=== PATIENT | male | born 1960 | race Caucasian/White ===

== ENCOUNTER 2023-07-24 17:38 | Inpatient (IN) | payer OTHER, SELFPAY ==
--- NOTE | ~2023-07-24 | US_ITS ---
EXAMINATION: US RETROPERITONEAL LIMITED (RENAL ONLY) CLINICAL INFORMATION: New onset renal failure. COMPARISON: Renal ultrasound 03/20/2023. TECHNIQUE: Real-time imaging of the kidneys. FINDINGS: RIGHT KIDNEY: 10.4 x 5.7 x 5.5 cm (SAG x AP x TRV). The kidney is normal in size, contour, and echogenicity. Renal cortical thickness is normal. No renal calculi or hydronephrosis. Simple appearing cysts largest in the lower pole measuring up to 6.4 cm, for which no imaging follow-up is recommended. LEFT KIDNEY: 10.4 x 6.8 x 5.5 cm (SAG x AP x TRV). The kidney is normal in size, contour, and echogenicity. Renal cortical thickness is normal. No renal calculi or hydronephrosis. Simple appearing cyst in the lower pole measuring 1.1 cm, for which no imaging follow-up is recommended. US/US renal BI IMPRESSION: No acute sonographic abnormalities.
--- NOTE | ~2023-07-24 | CT_ITS ---
EXAMINATION: CT HEAD WITHOUT CONTRAST CLINICAL INFORMATION: Dizziness, headache and intermittent left-sided numbness COMPARISON: None available. TECHNIQUE: Contiguous axial imaging was performed from the skull base to vertex without intravenous administration of contrast. This CT examination was performed using dose optimization techniques as appropriate, variously including the following: *Automated exposure control *Adjustment of mA and/or kV according to patient size (this includes techniques or standardized protocols for targeted exams where dose is matched to indication/reason for exam; i.e. extremities or head) *Use of iterative reconstruction technique DLP: 712 mGy-cm FINDINGS: There is no evidence for an extra-axial collection. There is no evidence for intra-or extra-axial hemorrhage. The ventricles and extra-axial CSF spaces are appropriate. Sidhu-white matter differentiation is normal. No mass, mass effect or infarct is seen. Review of bone windows is normal. No skull fracture. Visualized paranasal sinuses, mastoid air cells and middle ears are clear. CT/CT head/brain wo IV con IMPRESSION: No acute intracranial pathology.
[2023-07-24 18:42] VITALS: BP 112/73; PULSE 112; RESP 20; TEMP 36.9; O2SAT 98; BMI 28.7
--- NOTE | 2023-07-24 18:43 | ED.GENADULT ---
HPI - General Adult General Chief complaint: Dizziness Stated complaint: Flu like symptoms Time Seen by Provider: 07/24/23 21:02 Source: patient and family Mode of arrival: ambulatory Limitations: no limitations History of Present Illness HPI narrative: 63 yo male with PMH of HTN on lisinopril, gout on allopurinol, BPH, DM on glipizide notes since yesterday he has had loose nonbloody stools, feels very weak and tired like he will pass out. He has not urinated much. He feels dizzy when he tries to walk. He noted that his left leg yesterday AM felt tingly which has happened before in the past he can feel it but it just feels tingly. He was so tired that he left work yesterday and had to lay down most of the day. He denies known hx of moderate CKD but was told he shouldn't take ibuprofen last Cr 1.67 from [facility] 2021 complaint: weakness, dizziness Onset (ago): day(s) (yesterday AM) Radiation: non-radiation Severity: moderate Relieving factors: rest Exacerbating factors: movement Associated symptoms: loss of appetite, malaise, weakness and other (decreased urine output) Treatments prior to arrival: none Related Data Home Medications Medication Instructions Recorded Confirmed lisinopril 20 mg tablet 20 mg PO DAILY 10/10/21 10/10/21 Previous Rx's Medication Instructions Recorded prednisone 10 mg tablet 30 mg (3 x 10 mg) PO DAILY #15 tabs 10/10/21 tramadol 50 mg tablet 50 mg PO TID PRN pain #20 tabs 10/10/21 Allergies Allergy/AdvReac Type Severity Reaction Status Date / Time No Known Allergies Allergy Verified 07/24/23 18:47 Review of Systems Review of Systems: Constitutional : No Fever, No Chills, No Fatigue ENT/Mouth : No sore throat, No Rhinorrhea Eyes: No Eye Pain, No Swelling, No Redness Cardiovascular : No Chest Pain, No SOB, No Dyspnea on Exertion Respiratory : No Cough, No Sputum Gastrointestinal : No Nausea, No Vomiting, No Diarrhea, No abdominal Pain Genitourinary : No Dysuria, No Urinary Frequency, No Hematuria, Musculoskeletal : No joint pain, No Myalgias, No Joint Swelling Skin : No Skin Lesions, No rash Neuro : pos Weakness, pos Numbness, pos Dizziness, no Headache Psych : No Anxiety/Panic, No Depression All other systems reviewed and are negative [facility] Past Medical History Source: old records reviewed Medical History (Updated 07/24/23 @ 23:09 by ROSE Rodriguez) Nephrolithiasis Chronic kidney disease (CKD), stage III (moderate) Gout Diabetes HTN (hypertension) Social History Social History (Updated 07/24/23 @ 22:07 by Tierra Worthy DO) Household Members: Significant Other Housing: House Do you presently have visiting nurse or other home services: No Patient Tobacco Use Status: Never used Tobacco Physical Exam ED Vital Signs: Vital Signs - 24 hr 07/24/23 18:42 07/24/23 21:17 07/24/23 21:17 Temperature 98.5 F Pulse Rate 112 H 91 94 Pulse Rate [Monitor] Respiratory Rate 20 Blood Pressure 112/73 128/81 122/80 Pulse Oximetry 98 Oxygen Delivery Method Room Air 07/24/23 21:17 07/24/23 21:18 07/24/23 22:28 Temperature 98.3 F Pulse Rate 108 H 108 H Pulse Rate [Monitor] 90 Respiratory Rate 17 Blood Pressure 110/70 110/70 Pulse Oximetry 96 Oxygen Delivery Method Room Air BMI result Body Mass Index 28.7 Appearance: Alert. Oriented X3. No acute distress. Eyes: Pupils equal, round and reactive to light. ENT: Pharynx dry MM Neck: Normal inspection. Neck supple. CVS: Normal heart rate and rhythm. Pulses normal. Respiratory: No respiratory distress. Breath sounds normal. Abdomen: Soft and non-tender. Skin: Skin warm and dry. Normal skin color. Normal skin turgor. Extremities: No lower extremity edema. No calf ttp Neuro: Oriented X 3. No motor deficit. No sensory deficit. Course Course Course Narrative: This is an RME: Additional HPI, ROS, PE not included below will be deferred to primary provider. Patient is a 63 year old male presenting for evaluation. Reports yesterday morning 10:00 [address] felt very dizzy like he was going to pass out, developed pain in the left arm. Went home and laid on the floor for hours, got up and dizziness persisted. Unsteady on his feet, took a shower and it felt the same. Awoke today feeling persistent dizziness, fatigue all day. Has nausea without vomiting and diarrhea. Posterior headache and posterior neck pain. intermittent L anterior proximal thigh numbness. Denies fevers, chills, CP, shortness of breath, ABD pain. Plan: Labs, EKG, orthostatic vital signs Medications Administered Generic Name Dose Route Start Last Admin Trade Name Freq PRN Reason Stop Dose Admin Heparin Sodium (Porcine) 5,000 unit 07/24/23 23:00 07/25/23 00:02 Heparin Sodium,Porcine 5,000 Unit/Ml Vial SUBCUT 5,000 unit Q12H TAIWO Administration Sodium Chloride 1,000 mls @ 100 mls/hr 07/24/23 23:00 07/25/23 00:39 Ns IVCONT 100 mls/hr .Q10H TAIWO Administration Sodium Chloride 3 ml 07/25/23 00:00 07/25/23 00:44 0.9 % Sodium Chloride Flush 3 Ml Syringe IVFLUSH 3 ml QSHIFT TAIWO Administration Discontinued Medications Generic Name Dose Route Start Last Admin Trade Name Freq PRN Reason Stop Dose Admin Sodium Chloride 1,000 mls @ 999 mls/hr 07/24/23 21:15 07/24/23 23:26 Ns IV 07/24/23 22:15 Infused .Q1H1M TAIWO Infusion Sodium Chloride 1,000 mls @ 999 mls/hr 07/24/23 21:15 07/24/23 23:26 Ns IV 07/24/23 22:15 Infused .Q1H1M TAIWO Infusion Medical Decision Making Medical Decision Making [facility] Narrative: 63 yo male with PMH of DM, HTN, gout no changes in medications who presents with dizziness, difficulty walking, weakness all over, feeling some numbness in L leg since yesterady AM but intact on neuro exam at this time Cr 2.57 with last known last 2021 at [facility] will call for records. Labs, UA, renal US ordered. IVF x 2L. Likely admit given symptoms and suspected ISSA. Differential Diagnosis Differential Diagnoses: The differential diagnosis associated with the presentation includes dehydration, dizziness, orthostatics Admission/Observation Consideration of admission/observation: Escalation of care including admission/observation considered admit for ISSA Consult Healthcare Provider Management of the patient was discussed with: Hospitalist (will admit) Lab Data [facility] Lab Attestation statement: I reviewed the patient's lab results. 07/25/23 05:13 07/25/23 05:12 Labs: Lab Results 07/24/23 07/24/2324 Range/Units 18:51 19:20 19:26 WBC 10.2 (4.8-10.8) X10*3/uL RBC 6.53 H (4.60-5.80) X10*6/uL Hgb 17.5 (14.0-18.0) g/dl Hct 53.9 H (42.0-52.0) % MCV 82.5 (80.0-98.0) fL MCH 26.8 L (27.0-33.0) pg MCHC 32.5 (31.0-36.0) g/dl RDW 14.6 (11.0-16.0) % Plt Count 234 (160-400) X10*3/uL MPV 9.0 L (9.4-12.4) fL Immature Gran % (Auto) 0.4 (0.0-0.4) % Neut % (Auto) 80.4 H (45-73) % Lymph % (Auto) 9.8 L (20-40) % [place] % (Auto) 8.8 (2-11) % Eos % (Auto) 0.5 (0-4) % Baso % (Auto) 0.1 (0-2) % Lymph # (Auto) 1.0 L (1.2-4.9) X10*3/uL [place] # (Auto) 0.9 (0.1-1.2) X10*3/uL Eos # (Auto) 0.1 (0.0-0.4) X10*3/uL Baso # (Auto) 0.0 (0.0-0.2) X10*3/uL Abs Immat Gran (auto) 0.04 H (0.00-0.03) X10*3/uL Absolute Neuts (auto) 8.2 (2.0-8.3) x10*3/uL Absolute Nucleated RBC 0.000 (0.0-0.012) X10*3/uL Nucleated RBC % (auto) 0.0 (0.0-0.2) /100WBC PT 12.9 (11.1-13.3) SEC INR 1.1 (0.9-1.1) Sodium 137 (135-145) mmol/L Potassium 4.5 (3.3-5.1) mmol/L Chloride 106 (96-108) mmol/L Carbon Dioxide 21 L (22-29) mmol/L Anion Gap 15 (12-20) BUN 43 H (9-16) mg/dL Creatinine 2.57 H (0.5-1.4) mg/dL Estim Creat Clear Calc 33.7 Estimated GFR 25 POC Glucose 158 H (60-115) mg/dL Random Glucose 145 H (60-115) mg/dL Calcium 9.4 (8.4-10.2) mg/dL Magnesium 1.8 (1.6-2.6) mg/dL Total Bilirubin 0.6 (0.0-1.0) mg/dL AST 19 (5-37) U/L ALT 29 (0-40) U/L Alkaline Phosphatase 99 (39-117) U/L Total Creatine Kinase 51 (38-174) U/L Troponin I High Sens < 2.7 (<3.5-35.0) ng/L B-Natriuretic Peptide < 10 (<100) pg/mL Total Protein 8.1 H (6.5-8.0) g/dL Albumin 4.6 (3.5-5.0) g/dL Influenza Type A (PCR) NEGATIVE (Negative) Influenza Type B (PCR) NEGATIVE (Negative) RSV RNA Qual (PCR) NEGATIVE (Negative) SARS-CoV-2 RNA (RT-PCR) NEGATIVE (Negative) Independent Interpretation I performed an independent interpretation of an: EKG and Ultrasound (no obstruction) Interpretation: Rate: 96 Rhythm: NSR [place]: normal Normal P waves. Normal JEROME. Normal QRS complex. ST T wave : normal no DOROTHY qTC: 411 prior studies: no acute ischemia The study has been interpreted contemporaneously by me. . Radiology Impression Discussion of test interpretation with radiology: I have reviewed the radiologist's reading. Critical Care Time Critical Care Time Critical Care Time: Yes Total Critical Care Time: 40 Attestation: review of records, IVF x 2L, admission I attest to this time spent taking care of the patient Discharge Plan Discharge Clinical Impression: ISSA (acute kidney injury) Patient Disposition: Admitted As Inpatient Interventions: Admission Worksheet (ED) Last Done: 07/24/23 23:50 Discharge Date/Time: 07/25/23 00:15
--- NOTE | 2023-07-24 18:50 | ECG_ITS ---
Test Reason : DIZZNESS Blood Pressure : / mmHG Vent. Rate : 099 BPM Atrial Rate : 099 BPM P-R Int : 146 ms QRS Dur : 100 ms QT Int : 320 ms P-R-T Axes : 000 146 -24 degrees QTc Int : 410 ms Normal sinus rhythm Left posterior fascicular block Abnormal QRS-T angle, consider primary T wave abnormality Abnormal ECG No previous ECGs available Referred By: Pinky Vinson Electronically Signed By:JOANNE DIAZ MD
[2023-07-24 18:58] LABS: Glucose, Whole Blood 158 mg/dL (60-115)
[2023-07-24 19:31] LABS: MANUAL DIFF FLAG NO
[2023-07-24 19:33] LABS: Basophils Percent Auto 0.1 % (0-2); Eosinophils Absolute Auto 0.1 X10*3/uL (0.0-0.4); Eosinophils Percent Auto 0.5 % (0-4); Hematocrit 53.9 % (42.0-52.0); Hemoglobin 17.5 g/dl (14.0-18.0); Imm Gran Abs Auto 0.04 X10*3/uL (0.00-0.03); Imm Gran Pct Auto 0.4 % (0.0-0.4); Lymphocytes Percent Auto 9.8 % (20-40); Mean Corpuscular HGB Conc 32.5 g/dl (31.0-36.0); Mean Corpuscular Hemoglobin 26.8 pg (27.0-33.0); Mean Corpuscular Volume 82.5 fL (80.0-98.0); Monocytes Absolute Auto 0.9 X10*3/uL (0.1-1.2); Monocytes Percent Auto 8.8 % (2-11); Neutrophils Absolute Auto 8.2 x10*3/uL (2.0-8.3); Neutrophils Percent Auto 80.4 % (45-73); Platelet Count 234 X10*3/uL (160-400); Red Blood Count 6.53 X10*6/uL (4.60-5.80); Red Cell Distribution Width 14.6 % (11.0-16.0); White Blood Count 10.2 X10*3/uL (4.8-10.8)
[2023-07-24 19:44] LABS: INTERNATIONAL NORM RATIO 1.1 (0.9-1.1); Prothrombin Time 12.9 SEC (11.1-13.3)
[2023-07-24 19:50] LABS: Alanine Aminotransferase 29 U/L (0-40); Albumin Level 4.6 g/dL (3.5-5.0); Alkaline Phosphatase 99 U/L (39-117); Anion Gap 15 (12-20); Aspartate Amino Transferase 19 U/L (5-37); Bilirubin Total 0.6 mg/dL (0.0-1.0); Blood Urea Nitrogen 43 mg/dL (9-16); Calcium 9.4 mg/dL (8.4-10.2); Carbon Dioxide 21 mmol/L (22-29); Chloride 106 mmol/L (96-108); Creatinine Clr Calc Pharmacy 33.7; Estimated Glomerular Filt Rate 25; Glucose Random 145 mg/dL (60-115); Magnesium 1.8 mg/dL (1.6-2.6); Potassium 4.5 mmol/L (3.3-5.1); Sodium 137 mmol/L (135-145); Total Protein 8.1 g/dL (6.5-8.0)
[2023-07-24 19:53] LABS: B Type Natriuretic Peptide < 10 pg/mL (<100)
[2023-07-24 19:58] LABS: Troponin-I High Sensitivity < 2.7 ng/L (<3.5-35.0)
[2023-07-24 20:12] LABS: Influenza A PCR NEGATIVE (Negative); Influenza B PCR NEGATIVE (Negative); Resp Syncy Virus RNA Qual PCR NEGATIVE (Negative); SARS COV2 PCR INHOUSE NEGATIVE (Negative)
[2023-07-24 21:17] VITALS: BP 110/70; BP 122/80; BP 128/81; PULSE 108; PULSE 91; PULSE 94
[2023-07-24 21:18] VITALS: BP 110/70; PULSE 108; RESP 17; TEMP 36.8; O2SAT 96
--- NOTE | 2023-07-24 21:20 | PC.NURSE ---
2x attempt for iv without success. another RN retry at this time.
[2023-07-24] MEDS: 0.9 % Sodium Chloride 1,000 ML 999 ML IV ×2 (21:40)
[2023-07-24 22:28] VITALS: PULSE 90
--- NOTE | 2023-07-24 22:58 | P.HPHOSP_ITS ---
History of Present Illness Date of Service: 07/24/23 Attending physician on admission: Charissa Baum Chief Complaint: near syncope, diarrhea 63-year-old male with history of CKD stage 3, nephrolithiasis, uwq-ztfwblf-[id number] type 2 diabetes, hypertension presents to the ED earlier today with his girlfriend, Pat, for evaluation of near-syncope. The patient reports positional lightheadedness with decreased appetite and watery diarrhea ongoing since yesterday. He reports multiple episodes of nonbloody diarrhea that started yesterday with poor p.o. intake. He has been making urine. Denies eating any bad foods and no one at home has similar symptoms. No recent travel. No fevers, chills, abdominal pain, nausea, vomiting, shortness of breath, palpitations, syncope, chest pain. On arrival, patient intermittently tachycardic to 112 with heart rate 90 on admission. No hypotension, vitals otherwise stable. Orthostatic vital signs negative. There is no leukocytosis. Creatinine 2.57 (baseline around 1.4 per patient's MyChart Portal from [facility]), BUN 43. Electrolyte levels normal. Glucose 158 on admission. Hepatic function normal. Troponin below detectable limits. Negative for influenza, COVID-19, RSV. Renal ultrasound negative for any acute sonographic abnormalities. Head CT negative for any acute intracranial abnormalities. In the ED, given 2 L IV NS. Review of Systems 2 Review of Systems: General: No fevers, malaise, unintentional weight loss HEENT: No blurred vision, diplopia. No sore throat, nasal congestion, rhinorrhea, sinus pain, ear pain Cardiovascular: No chest pain, palpitations, or leg edema Respiratory: No shortness of breath, wheezing, cough GI: +diarrhea, +anorexia. No nausea, vomiting, constipation, melena, hematochezia : No dysuria, hematuria, increased urinary frequency, decreased urinary output MSK: No myalgia, back pain Neuro: No headaches, weakness, paresthesias. +lightheadedness Skin: No rashes or lesions [facility] Medical History (Updated 07/24/23 @ 23:09 by ROSE Rodriguez) Nephrolithiasis Chronic kidney disease (CKD), stage III (moderate) Gout Diabetes HTN (hypertension) Social History (Updated 07/24/23 @ 22:07 by Tierra Worthy DO) Patient Tobacco Use Status: Never used Tobacco Smoked in Last 30 Days: No Use of substances other than those prescribed or required for medical reasons: No Advance Directives: No Advance Directives Information Provided: No Meds Allergies Allergy/AdvReac Type Severity Reaction Status Date / Time No Known Allergies Allergy Verified 07/24/23 18:47 Home Medications Medication Instructions Recorded Confirmed Last Taken Type lisinopril 20 mg tablet 20 mg PO DAILY 10/10/21 10/10/21 Unknown History Physical Exam 2 Vital Signs and Narrative: Vital Signs: Last Vital Signs Temp 98.3 F 07/24/23 21:18 Pulse 90 07/24/23 22:28 Resp 17 07/24/23 21:18 BP 110/70 07/24/23 21:18 Pulse Ox 96 07/24/23 21:18 O2 Del Method Room Air 07/24/23 21:18 BMI result Body Mass Index 28.7 Results Labs 07/24/23 19:26 07/24/23 19:26 Labs: Laboratory Results - last 24 hr 07/24/23 07/24/23 07/24/23 18:51 19:20 19:26 MCV 82.5 MCH 26.8 L MCHC 32.5 RDW 14.6 Plt Count 234 MPV 9.0 L Immature Gran % (Auto) 0.4 Neut % (Auto) 80.4 H Lymph % (Auto) 9.8 L [place] % (Auto) 8.8 Eos % (Auto) 0.5 Baso % (Auto) 0.1 Lymph # (Auto) 1.0 L [place] # (Auto) 0.9 Eos # (Auto) 0.1 Baso # (Auto) 0.0 Abs Immat Gran (auto) 0.04 H Absolute Neuts (auto) 8.2 Absolute Nucleated RBC 0.000 Nucleated RBC % (auto) 0.0 PT 12.9 INR 1.1 Anion Gap 15 Estim Creat Clear Calc 33.7 Estimated GFR 25 POC Glucose 158 H Random Glucose 145 H Calcium 9.4 Magnesium 1.8 Total Bilirubin 0.6 AST 19 ALT 29 Alkaline Phosphatase 99 Total Creatine Kinase 51 Troponin I High Sens < 2.7 B-Natriuretic Peptide < 10 Total Protein 8.1 H Albumin 4.6 Influenza Type A (PCR) NEGATIVE Influenza Type B (PCR) NEGATIVE RSV RNA Qual (PCR) NEGATIVE SARS-CoV-2 RNA (RT-PCR) NEGATIVE Imaging Radiologist's Impressions: Impressions Head CT 07/24/23 19:36 IMPRESSION: No acute intracranial pathology. Renal Ultrasound 07/24/23 21:49 IMPRESSION: No acute sonographic abnormalities. Assessment and Plan (1) Diarrhea: Qualifiers: Diarrhea type: unspecified type Qualified Code(s): R19.7 - Diarrhea, unspecified Status: Acute (2) Near syncope: Status: Acute (3) ISSA (acute kidney injury): Status: Acute Plan 63-year-old male with history of CKD stage 3, nephrolithiasis, uns-ooyucue-lotbmqvyx type 2 diabetes, hypertension admitted for ISSA and near syncope due to acute diarrhea. #Acute kidney injury- likely prerenal 2/2 GI losses -Creat 2.57, baseline around 1.4 ([facility] patient portal), BUN 43 -baseline ckd stage 3 -Continue IVF -avoid nephrotoxins -monitor I&O -low sodium diet -follow renal function/lytes #Orthostatic near syncope -repeat orthostatic VS am, no hypotension -continue ivf #Acute diarrhea -cdiff pcr and gi panel pending #Non insulin dependent type 2 diabetes without hyperglycemia -poc glucose, diabetic diet -humalog on ss #Hypertension -bp reasonably controlled -hold lisinopril in setting of ISSA DVT prophylaxis- heparin full code pt requires inpt stay at least 2 midnights due to issa due to gi losses with near syncope requiring IVF resuscitation and close monitoring of renal function and electrolyte levels. Quality Stroke Does the patient have a stroke diagnosis?: No VTE Prior VTE?: No VTE Risk Level:: Medical - moderate - high VTE Device Contraindication: Treatment Not Indicated VTE Drug Contraindication: N/A - Med Ordered
[2023-07-24 23:49] LABS: Appearance Urine Clear; Color Urine Yellow; Glucose Urine UA Negative (Negative); Leukocyte Esterase Urine Negative (Negative); Nitrite Urine Negative (Negative); PH 5.5 (5.0-9.0); Specific Gravity - Urine 1.025 (1.005-1.025); UMIC TRIGGER UACC YES; Urine Blood Moderate (2+) (Negative); Urine Ketones Negative (Negative); Urine Protein 30 (1+) mg/dL (Neg-Trace)
[2023-07-24 23:55] VITALS: BP 146/84; PULSE 82; RESP 20; TEMP 36.6; O2SAT 96
[2023-07-24 23:59] LABS: Creatinine Urine 175.76 mg/dL
[2023-07-25] VITALS (9 sets, daily range): BP systolic 123–148; BP diastolic 71–85; PULSE 72–97; RESP 16–18; TEMP 36.3–36.8; O2SAT 95–98
[2023-07-25] MEDS: Heparin Sodium,Porcine 5,000 UNIT/ML VIAL 5000 UNIT SUBCUT ×3 (00:02→22:49)
[2023-07-25 00:12] LABS: Bacteria Urine None Seen (None Seen); Squamous Epithelial Cell Urine 0-2 /HPF (0-2); WBC Urine 0-5 /HPF (0-5)
[2023-07-25] MEDS: 0.9 % Sodium Chloride 1,000 ML 100 ML IVCONT ×3 (00:39→22:46)
[2023-07-25] MEDS: 0.9 % Sodium Chloride Flush 3 ML SYRINGE IVFLUSH (00:44)
[2023-07-25 05:23] LABS: MANUAL DIFF FLAG NO
[2023-07-25 05:28] LABS: Basophils Percent Auto 0.3 % (0-2); Eosinophils Absolute Auto 0.1 X10*3/uL (0.0-0.4); Eosinophils Percent Auto 1.1 % (0-4); Hematocrit 47.4 % (42.0-52.0); Hemoglobin 15.1 g/dl (14.0-18.0); Imm Gran Abs Auto 0.05 X10*3/uL (0.00-0.03); Imm Gran Pct Auto 0.5 % (0.0-0.4); Lymphocytes Absolute Auto 1.8 X10*3/uL (1.2-4.9); Lymphocytes Percent Auto 19.2 % (20-40); Mean Corpuscular HGB Conc 31.9 g/dl (31.0-36.0); Mean Corpuscular Hemoglobin 26.6 pg (27.0-33.0); Mean Corpuscular Volume 83.5 fL (80.0-98.0); Mean Platelet Volume 9.3 fL (9.4-12.4); Monocytes Absolute Auto 1.1 X10*3/uL (0.1-1.2); Neutrophils Absolute Auto 6.3 x10*3/uL (2.0-8.3); Neutrophils Percent Auto 66.9 % (45-73); Platelet Count 184 X10*3/uL (160-400); Red Blood Count 5.68 X10*6/uL (4.60-5.80); Red Cell Distribution Width 14.3 % (11.0-16.0); White Blood Count 9.4 X10*3/uL (4.8-10.8)
[2023-07-25 05:46] LABS: Anion Gap 10 (12-20); Blood Urea Nitrogen 34 mg/dL (9-16); Calcium 8.1 mg/dL (8.4-10.2); Carbon Dioxide 17 mmol/L (22-29); Chloride 114 mmol/L (96-108); Creatinine Clr Calc Pharmacy 45.6; Estimated Glomerular Filt Rate 36; Glucose Random 128 mg/dL (60-115); Potassium 3.9 mmol/L (3.3-5.1); Sodium 137 mmol/L (135-145)
[2023-07-25 07:43] LABS: Glucose, Whole Blood 140 mg/dL (60-115)
--- NOTE | 2023-07-25 08:41 | PHA.MEDREC ---
Pharmacy Consult ? Medication Reconciliation Pharmacy has completed the medication reconciliation. spoke with patient to confirm medications. He reports last taking his medications morning.
[2023-07-25 11:04] LABS: CDiff Gene PCR NEGATIVE (Negative)
--- NOTE | 2023-07-25 11:19 | HO.PM.IMPN ---
Subjective Subjective Date of Service: 07/25/23 Physical Exam Vital Signs: Vital Signs: Last Vital Signs Temp 97.5 F 07/25/23 07:22 Pulse 94 07/25/23 08:20 Resp 18 07/25/23 07:22 BP 125/74 07/25/23 08:20 Pulse Ox 95 07/25/23 07:22 O2 Del Method Room Air 07/25/23 07:22 BMI result Body Mass Index 28.7 Objective Data Active Medications Acetaminophen (Acetaminophen 325 Mg Tablet) 650 mg PO Q6H PRN PRN Reason: Pain, Mild (Pain Scale 1-3) Dextrose (Dextrose 50 % 25 Gm/50 Ml Syringe) 25 gm IVPUSH Q15M PRN; Protocol PRN Reason: per Hypoglycemia Standing Ord. Glucose (Glucose Gel 15 Gm Gel..Gram.) 15 gm PO Q15M PRN; Protocol PRN Reason: per Hypoglycemia Standing Ord. Heparin Sodium (Porcine) (Heparin Sodium,Porcine 5,000 Unit/Ml Vial) 5,000 unit SUBCUT Q12H [facility] Last Admin: 07/25/23 00:02 Dose: 5,000 unit Documented By: ROSIE Sodium Chloride (Ns) 1,000 mls @ 100 mls/hr IVCONT .Q10H [facility] Last Admin: 07/25/23 00:39 Dose: 100 mls/hr Documented By: CATHY Insulin Human Lispro (Insulin Lispro 100 Unit/Ml 3 Ml Vial) 0 unit SUBCUT QIDACHS [facility]; Protocol Last Admin: 07/25/23 07:46 Dose: Not Given Documented By: KEN Non-Admin Reason: No Insulin Coverage Ondansetron HCl (Ondansetron Hcl 4 Mg/2 Ml Vial) 4 mg IVPUSH Q8H PRN PRN Reason: Nausea and Vomiting Senna (Sennosides 8.6 Mg Tablet) 17.2 mg PO BEDTIME PRN PRN Reason: Constipation Sodium Chloride (0.9 % Sodium Chloride Flush 3 Ml Syringe) 3 ml IVFLUSH QSHIFT [facility] Last Admin: 07/25/23 07:33 Dose: Not Given Documented By: KEN Non-Admin Reason: IV Running Labs 07/25/23 05:13 07/25/23 05:12 Labs: Laboratory Results - last 24 hr 07/24/23 07/24/2307/23/24 18:51 19:20 19:26 MCV 82.5 MCH 26.8 L MCHC 32.5 RDW 14.6 Plt Count 234 MPV 9.0 L Immature Gran % (Auto) 0.4 Neut % (Auto) 80.4 H Lymph % (Auto) 9.8 L [place] % (Auto) 8.8 Eos % (Auto) 0.5 Baso % (Auto) 0.1 Lymph # (Auto) 1.0 L [place] # (Auto) 0.9 Eos # (Auto) 0.1 Baso # (Auto) 0.0 Abs Immat Gran (auto) 0.04 H Absolute Neuts (auto) 8.2 Absolute Nucleated RBC 0.000 Nucleated RBC % (auto) 0.0 PT 12.9 INR 1.1 Anion Gap 15 Estim Creat Clear Calc 33.7 Estimated GFR 25 POC Glucose 158 H Random Glucose 145 H Calcium 9.4 Magnesium 1.8 Total Bilirubin 0.6 AST 19 ALT 29 Alkaline Phosphatase 99 Total Creatine Kinase 51 Troponin I High Sens < 2.7 B-Natriuretic Peptide < 10 Total Protein 8.1 H Albumin 4.6 Urine Color Urine Appearance Urine pH Ur Specific [place] Urine Protein Urine Glucose (UA) Urine Ketones Urine Blood Urine Nitrite Ur Leukocyte Esterase Urine RBC Urine WBC Ur Squamous Epith Cells Urine Bacteria Hyaline Casts Ur Random Sodium Urine Creatinine C. difficile Tox B Gene Influenza Type A (PCR) NEGATIVE Influenza Type B (PCR) NEGATIVE RSV RNA Qual (PCR) NEGATIVE SARS-CoV-2 RNA (RT-PCR) NEGATIVE 07/24/23 07/25/23 07/25/23 23:45 05:12 05:13 MCV 83.5 MCH 26.6 L MCHC 31.9 RDW 14.3 Plt Count 184 MPV 9.3 L Immature Gran % (Auto) 0.5 H Neut % (Auto) 66.9 Lymph % (Auto) 19.2 L [place] % (Auto) 12.0 H Eos % (Auto) 1.1 Baso % (Auto) 0.3 Lymph # (Auto) 1.8 [place] # (Auto) 1.1 Eos # (Auto) 0.1 Baso # (Auto) 0.0 Abs Immat Gran (auto) 0.05 H Absolute Neuts (auto) 6.3 Absolute Nucleated RBC 0.000 Nucleated RBC % (auto) 0.0 PT INR Anion Gap 10 L Estim Creat Clear Calc 45.6 Estimated GFR 36 POC Glucose Random Glucose 128 H Calcium 8.1 L D Magnesium Total Bilirubin AST ALT Alkaline Phosphatase Total Creatine Kinase Troponin I High Sens B-Natriuretic Peptide Total Protein Albumin Urine Color Yellow Urine Appearance Clear Urine pH 5.5 Ur Specific [place] 1.025 Urine Protein 30 (1+) H Urine Glucose (UA) Negative Urine Ketones Negative Urine Blood Moderate (2+) H Urine Nitrite Negative Ur Leukocyte Esterase Negative Urine RBC 11-20 H Urine WBC 0-5 Ur Squamous Epith Cells 0-2 Urine Bacteria None Seen Hyaline Casts 6-10 Ur Random Sodium 88.0 Urine Creatinine 175.76 C. difficile Tox B Gene Influenza Type A (PCR) Influenza Type B (PCR) RSV RNA Qual (PCR) SARS-CoV-2 RNA (RT-PCR) 07/25/23 07/25/23 07:18 09:29 MCV MCH MCHC RDW Plt Count MPV Immature Gran % (Auto) Neut % (Auto) Lymph % (Auto) [place] % (Auto) Eos % (Auto) Baso % (Auto) Lymph # (Auto) [place] # (Auto) Eos # (Auto) Baso # (Auto) Abs Immat Gran (auto) Absolute Neuts (auto) Absolute Nucleated RBC Nucleated RBC % (auto) PT INR Anion Gap Estim Creat Clear Calc Estimated GFR POC Glucose 140 H Random Glucose Calcium Magnesium Total Bilirubin AST ALT Alkaline Phosphatase Total Creatine Kinase Troponin I High Sens B-Natriuretic Peptide Total Protein Albumin Urine Color Urine Appearance Urine pH Ur Specific [place] Urine Protein Urine Glucose (UA) Urine Ketones Urine Blood Urine Nitrite Ur Leukocyte Esterase Urine RBC Urine WBC Ur Squamous Epith Cells Urine Bacteria Hyaline Casts Ur Random Sodium Urine Creatinine C. difficile Tox B Gene NEGATIVE Influenza Type A (PCR) Influenza Type B (PCR) RSV RNA Qual (PCR) SARS-CoV-2 RNA (RT-PCR) Assessment and Plan (1) Diarrhea: Status: Acute Plan 63-year-old male with history of CKD stage 3, nephrolithiasis, cld-jjfsyyq-enifkfyfz type 2 diabetes, hypertension admitted for ISSA and near syncope due to acute diarrhea. Acute diarrhea ? viral normal LFT's no recent travel or illness cdiff pcr neg GI panel results pending, if neg give immodium Acute kidney injury on ckd 3 likely prerenal 2/2 GI losses Continue IVF avoid nephrotoxins monitor I&O follow renal function/lytes Orthostatic near syncope resolved continue ivf Non insulin dependent type 2 diabetes without hyperglycemia ss, ada diet Hypertension stable hold lisinopril in setting of ISSA DVT prophylaxis- heparin Attending Dr. Orellana full code continue hospital stay due to issa due to gi losses with near syncope requiring IVF resuscitation and close monitoring of renal function and electrolyte levels. Quality Stroke Does the patient have a stroke diagnosis?: No VTE Prior VTE?: No VTE Risk Level:: Medical - moderate - high VTE Device Contraindication: Treatment Not Indicated VTE Drug Contraindication: N/A - Med Ordered
[2023-07-25 11:37] LABS: Glucose, Whole Blood 135 mg/dL (60-115)
[2023-07-25 12:10] LABS: Adenovirus F 40/41 Not Detected (Not Detect.); Astrovirus Not Detected (Not Detect.); Cryptosporidium Not Detected (Not Detect.); Cyclospora cayetanensis Not Detected (Not Detect.); E. coli EAEC Not Detected (Not Detect.); E. coli EPEC Not Detected (Not Detect.); E. coli ETEC Not Detected (Not Detect.); E. coli STEC Not Detected (Not Detect.); Entamoeba histolytica Not Detected (Not Detect.); Giardia lamblia Not Detected (Not Detect.); Plesiomonas shigelloides Not Detected (Not Detect.); Rotavirus A Not Detected (Not Detect.); Salmonella Not Detected (Not Detect.); Sapovirus Not Detected (Not Detect.); Shigella sp./EIEC Not Detected (Not Detect.); Vibrio Not Detected (Not Detect.); Vibrio Cholerae Not Detected (Not Detect.); Yersinia enterocolitica Not Detected (Not Detect.)
[2023-07-25 13:33] LABS: Campylobacter Detected (Not Detect.)
--- NOTE | 2023-07-25 14:34 | MHC.CM.PN ---
PT REPORTS HE LIVES WITH HIS S/O AND IS INDEPENDENT WITH CARE HE HAS NO DME AND NO SERVICES PT IS UNSURE IF HE HAS A HCP, BUT DOES NOT WANT TO DO ONE NOW PCP: CONCHIS DENNIS DCP: HOME NO SERVICES VIA PRIVATE TRANSPORT
[2023-07-25 16:18] LABS: Glucose, Whole Blood 114 mg/dL (60-115)
[2023-07-25 19:59] LABS: Glucose, Whole Blood 110 mg/dL (60-115)
[2023-07-26 06:31] LABS: Anion Gap 10 (12-20); Blood Urea Nitrogen 22 mg/dL (9-16); Calcium 8.3 mg/dL (8.4-10.2); Carbon Dioxide 20 mmol/L (22-29); Chloride 110 mmol/L (96-108); Creatinine Clr Calc Pharmacy 60.2; Estimated Glomerular Filt Rate 50; Glucose Random 85 mg/dL (60-115); Sodium 136 mmol/L (135-145)
[2023-07-26 07:59] LABS: Glucose, Whole Blood 96 mg/dL (60-115)
[2023-07-26 08:00] VITALS: BP 139/79; PULSE 70; RESP 18; TEMP 36.7; O2SAT 97
--- NOTE | 2023-07-26 08:24 | PM.DS ---
DS: Providers Provider Date of Service: 07/26/23 Date of admission: 07/24/23 22:55 Primary care physician: Unknown Physician DS: Diagnosis Discharge Diagnosis (1) Diarrhea: Status: Acute DS: Summary Hospital Course Hospital Course: History and physical as per admitting provider. 63-year-old male with history of CKD stage 3, nephrolithiasis, [id number] type 2 diabetes, hypertension presents to the ED earlier today with his girlfriend, Pat, for evaluation of near-syncope. The patient reports positional lightheadedness with decreased appetite and watery diarrhea ongoing since yesterday. He reports multiple episodes of nonbloody diarrhea that started yesterday with poor p.o. intake. He has been making urine. Denies eating any bad foods and no one at home has similar symptoms. No recent travel. No fevers, chills, abdominal pain, nausea, vomiting, shortness of breath, palpitations, syncope, chest pain. On arrival, patient intermittently tachycardic to 112 with heart rate 90 on admission. No hypotension, vitals otherwise stable. Orthostatic vital signs negative. There is no leukocytosis. Creatinine 2.57 (baseline around 1.4 per patient's MyChart Portal from [facility]), BUN 43. Electrolyte levels normal. Glucose 158 on admission. Hepatic function normal. Troponin below detectable limits. Negative for influenza, COVID-19, RSV. Renal ultrasound negative for any acute sonographic abnormalities. Head CT negative for any acute intracranial abnormalities. In the ED, given 2 L IV NS. 63-year-old man treated for Campylobacter diarrhea. No fever, abdominal pain, bloody stools. Diarrhea resolved on day of discharge. He also had acute kidney injury from GI losses. He was treated with IV fluids and creatinine trended down substantially. His orthostatic hypotension was also secondary to GI fluid losses but resolved with IV fluids. Plan is to discharge home, bland diet for few days, plenty of fluids. Check BMP in 2 days CKD stage 3. Close to baseline Diabetes mellitus type 2. Continue home medications Hypertension. Continue lisinopril Time Attestation Discharge Coordination Time (in mins): 32 Quality: Safe Use of Opioids Does Pt have an Active Cancer Diagnosis on the Problem List?: No Quality: Stroke Does the patient have a stroke diagnosis?: No Physical Exam Vital Signs: Vital Signs: Last Vital Signs Temp 98.0 F 07/26/23 08:00 Pulse 70 07/26/23 08:00 Resp 18 07/26/23 08:00 BP 139/79 07/26/23 08:00 Pulse Ox 97 07/26/23 08:00 O2 Del Method Room Air 07/26/23 08:00 BMI result Body Mass Index 28.7 Appearing in no acute distress head is normocephalic atraumatic eyes pupils are PERRLA sclera is anicteric mouth throat mucous membranes are intact and moist neck is supple no lymphadenopathy, no JVD noted lung sounds are clear to auscultation heart regular rate rhythm, clear S1, S2 positive bowel sounds, abdomen is soft, nontender neuro patient is alert x3, no focal deficits DS: Data Data Completed and Pending Labs on day of discharge: Laboratory Results - last 24 hr 07/25/23 07/25/23 07/25/23 09:29 11:16 15:59 Hold Purple Top Sodium Potassium Chloride Carbon Dioxide Anion Gap BUN Creatinine Estim Creat Clear Calc Estimated GFR POC Glucose 135 H 114 Random Glucose Calcium Stl C. cayetanensis PCR Not Detected Stool Rotavirus A PCR Not Detected Stl Adenov F 40/ PCR Not Detected Stool Astrovirus (PCR) Not Detected Stool Campylobacter PCR Detected A Stool Cryptosporidium PCR Not Detected Stl Sh Tox Pr E STEC PCR Not Detected Stool E coli O157 PCR Not applicable Stl Enterotoxigenic E PCR Not Detected Stool EPEC (PCR) Not Detected Stool EAEC (PCR) Not Detected Stl E. histolytica PCR Not Detected Stool Giardia Lamblia PCR Not Detected Stl P. shigelloides PCR Not Detected Stool Salmonella PCR Not Detected Stool Sapovirus (PCR) Not Detected Stl Shigella/EIEC PCR Not Detected St Y.enterocolitica PCR Not Detected Stool Vibrio (PCR) Not Detected Stl Vibrio cholerae PCR Not Detected Stl Norovirus GI/GII PCR See Comment C. difficile Tox B Gene NEGATIVE 07/25/23 07/26/23 07/26/23 19:29 05:31 07:17 Hold Purple Top SEE NOTE Sodium 136 Potassium 4.0 Chloride 110 H Carbon Dioxide 20 L Anion Gap 10 L BUN 22 H Creatinine 1.44 H Estim Creat Clear Calc 60.2 Estimated GFR 50 POC Glucose 110 96 Random Glucose 85 Calcium 8.3 L Stl C. cayetanensis PCR Stool Rotavirus A PCR Stl Adenov F 40/ PCR Stool Astrovirus (PCR) Stool Campylobacter PCR Stool Cryptosporidium PCR Stl Sh Tox Pr E STEC PCR Stool E coli O157 PCR Stl Enterotoxigenic E PCR Stool EPEC (PCR) Stool EAEC (PCR) Stl E. histolytica PCR Stool Giardia Lamblia PCR Stl P. shigelloides PCR Stool Salmonella PCR Stool Sapovirus (PCR) Stl Shigella/EIEC PCR St Y.enterocolitica PCR Stool Vibrio (PCR) Stl Vibrio cholerae PCR Stl Norovirus GI/GII PCR C. difficile Tox B Gene Discharge Plan Discharge Anticipated Discharge Date/Time: 07/26/23 08:22 Patient Disposition: Home, Self-Care Discharge Diagnosis: Campylobacter diarrhea Acute kidney injury Discharge Medications: Continued allopurinol 100 mg tablet 100 mg PO DAILY glipizide 5 mg tablet 5 mg PO DAILY alfuzosin 10 mg tablet extended release 24 hr 10 mg PO BEDTIME lisinopril 20 mg tablet 20 mg PO DAILY Discharge Orders: Discharge Order (Routine); Ordered 07/26/23 Ordered By: Meena Alegria Diet: Advance to usual diet Activity on Discharge: As tolerated Stand Alone Forms: Patient Portal Discharge page, Work/School Release Other Ambulatory Orders: Basic Metabolic Panel (Routine) Timeframe: 2 Days Facility: [facility] - Location: Laboratory Ordered By: Meena Alegria Care Plan Goals: Drink plenty of fluids Lamar diet for a few days Health Concerns: Campylobacter diarrhea Acute kidney injury Plan of Treatment: Follow-up with primary care provider as needed Take all medications as prescribed Assessment: See discharge summary
--- NOTE | 2023-07-26 09:00 | MHC.CM.PN ---
PT WILL DC HOME WITH NO SERVICES VIA PRIVATE TRANSPORT
[2023-07-26 11:43] LABS: Glucose, Whole Blood 109 mg/dL (60-115)
[2023-08-03 08:39] LABS: Norovirus Stool PCR DETECTED
== END 2023-07-26 11:37 | disposition home or self-care (01) | DRG 372 ==
LOC: HO.ED 22:12 → HO.EDOVER 23:06 → HO.S3 23:48
PROVIDERS: Nurse Practitioner Family; Admitting Provider Physician Assistant; Emergency Provider Emergency Medicine; PCP Physician Assistant Medical; Visit Provider Nurse Practitioner Acute Care
DX: A04.5 Campylobacter enteritis (principal); N17.9 Acute kidney failure, unspecified; I12.9 Hypertensive chronic kidney disease with stage 1 through stage 4 chronic kidney disease, or unspecified chronic kidney disease; I95.1 Orthostatic hypotension; N18.30 Chronic kidney disease, stage 3 unspecified; E11.22 Type 2 diabetes mellitus with diabetic chronic kidney disease; Z20.822 Contact with and (suspected) exposure to COVID-19; Z79.84 Long term (current) use of oral hypoglycemic drugs; Z79.899 Other long term (current) drug therapy
CPT/HCPCS: 0241U; 36415; 70450; 76775; 80048; 80053; 81001; 82550; 82570; 82947; 83735; 83880; 84300; 84484; 85025; 85610; 87493; 87507; 93005; 99221; 99285; J1644

== ENCOUNTER → 2023-07-24 18:50 | Outpatient (BNV) | payer OTHER, SELFPAY | PROVIDERS: Admitting Provider Physician Assistant; Emergency Provider Emergency Medicine; Visit Provider Internal Medicine Cardiovascular Disease | DX: I44.5 Left posterior fascicular block (principal) | CPT/HCPCS: 93010 ==

== ENCOUNTER → 2023-07-24 22:55 | Outpatient (BNV) | payer OTHER, SELFPAY | PROVIDERS: Admitting Provider Physician Assistant; Emergency Provider Emergency Medicine; Visit Provider Physician Assistant | DX: R19.7 Diarrhea, unspecified (principal) | CPT/HCPCS: 99223; 99232; 99239 ==

== ENCOUNTER 2025-01-16 15:27 | Outpatient (AMB) | payer OTHER, SELFPAY ==
--- NOTE | 2025-01-16 15:36 | A.OFFVIS_ITS ---
Intake Visit Reasons: BPH/ED Intake Note: Patient is present for BPH/ED Urology Medication:ALFUZOSIN,ALLOPURINOL Antibiotic Allergy:NONE Blood Thinner:NONE Cushion Maker Hand Required: No Allergies No Known Allergies Allergy (Verified 01/16/25 16:45) Medication List - Last Reconciled 01/16/25 by NAYELY Monzon alfuzosin ER 10 mg PO BEDTIME allopurinol 100 mg PO DAILY glipizide 5 mg PO DAILY lisinopril 20 mg PO DAILY HPI Comments Details: Abhinav is a pleasant 64-year-old male patient of Dr. Valero who was accompanied by his significant other at today's office visit. He has a past medical history of hyperlipidemia, hypertension, diabetes, gout, and nephrolithiasis. He presents to the office today as a new patient for nephrolithiasis and lower urinary tract symptoms. In discussion with the patient today he reports previously following up with Dr. Matamoros at [facility] for many years for his ongoing issues of nephrolithiasis however since initiation of allopurinol has had no episodes of nephrolithiasis. He denies any previous surgical history for nephrolithiasis. He reports having had YANELI with Dr. Matamoros and was noted to have an enlarged prostate. He discusses his ongoing issues with lower urinary tract symptoms and has been in alfuzosin 10 mg daily. He reports he is unsure as if this has been helpful in treatment of his lower urinary tract symptoms. 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 We did discussed at length potential causes of lower urinary tract symptoms as well as nephrolithiasis. We discussed obtaining retroperitoneal ultrasound, PSA, and A1c for further assessment evaluation. He also reports issues with erectile dysfunction. He reports having discussed this with his PCP and has previously trialed p.r.n. dosing of tadalafil and Levitra. He reports no improvement in erections with tadalafil however upon initiation of Levitra he did have an erection however most recently feels this has not been working. We also discussed potential causes of ED as well as further treatment options and risks and benefits of these treatment options. In office urinalysis results reviewed with the patient today. All questions were answered. He otherwise offers no other issues or concerns at this time. [facility] Medical History Nephrolithiasis Chronic kidney disease (CKD), stage III (moderate) Gout Diabetes HTN (hypertension) Social History (Updated 07/24/23 @ 22:07 by Tierra Worthy DO) Household Members: Significant Other Housing: House Do you presently have visiting nurse or other home services: No Patient Tobacco Use Status: Never used Tobacco service: No Review of Systems Const All systems reviewed & are unremarkable except as noted in HPI and below Physical Exam Const General: cooperative, comfortable, no acute distress, well developed, alert and awake Orientation/consciousness: patient oriented x3 HEENT Head: Yes normal to inspection, Yes normocephalic and Yes atraumatic Ears: hearing grossly normal bilaterally Eyes General: appearance normal, both eyes and all related structures Neck Neck: Yes normal visual inspection and Yes trachea midline Chest Chest palpation & inspection: normal inspection of the chest Resp Effort & Inspection: normal respiratory effort and able to speak in complete sentences Cardio Rate: regular rate GI Inspection: Yes normal to inspection General: Yes no CVA tenderness Back/Spine/Pelvis Back: no CVA tenderness Skin General skin exam: no rashes or lesions noted Neuro General: patient oriented x3 Extrem General: Yes normal to inspection Psych Appearance: grossly normal and well kempt Mental Status: mental status grossly normal Speech and movement: Normal speech and movement present and Clear speech present Affect: normal affect Attitude: cooperative Thought process: Normal thought process present Thought content: Normal thought content present Results AMB Urinalysis, Automated UA Leukoctes 0 David/uL Last Edit by MARGARITA Diop on 01/16/25 16:38 UA Nitrite Negative Last Edit by MARGARITA Diop on 01/16/25 16:38 UA Urobilinogen 0.2 mg/dL Last Edit by MARGARITA Diop on 01/16/25 16:3 8 UA Protein 0 mg/dL Last Edit by MARGARITA Diop on 01/16/25 16:38 UA pH 5.5 Last Edit by MARGARITA Diop on 01/16/25 16:38 UA Blood 80 Rio/uL Last Edit by MARGARITA Diop on 01/16/25 16:38 UA Specific [place] 1.010 Last Edit by MARGARITA Diop on 01/16/25 16: 38 UA Ketone Negative Last Edit by MARGARITA Diop on 01/16/25 16:38 UA Bilirubin 0 mg/dL Last Edit by MARGARITA Diop on 01/16/25 16:38 UA Glucose 0 mg/dL Last Edit by MARGARITA Diop on 01/16/25 16:38 Results Reviewed Results Reviewed: Laboratory Last Values Urine pH (Auto) 5.5 01/16/25 16:38 Specific [place] (Auto) 1.010 01/16/25 16:38 Urine Protein (Auto) 0 mg/dL 01/16/25 16:38 Glucose (UA)(Auto) 0 mg/dL 01/16/25 16:38 Urine Ketones (Auto) Negative 01/16/25 16:38 Urine Blood (Auto) 80 Rio/uL 01/16/25 16:38 Urine Nitrite (Auto) Negative 01/16/25 16:38 Urine Bilirubin (Auto) 0 mg/dL 01/16/25 16:38 Urine Urobilinogen (Auto) 0.2 mg/dL 01/16/25 16:38 Leukocyte Esterase (Auto) 0 David/uL 01/16/25 16:38 Assessment & Plan Assessment & Plan (1) Lower urinary tract symptoms: Code(s): R39.9 - Unspecified symptoms and signs involving the genitourinary system Category: Medical (2) Enlarged prostate: Code(s): N40.0 - Benign prostatic hyperplasia without lower urinary tract symptoms Category: Medical (3) Nocturia: Code(s): R35.1 - Nocturia Category: Medical (4) Erectile dysfunction associated with type 2 diabetes mellitus: Code(s): E11.69 - Type 2 diabetes mellitus with other specified complication; N52.1 - Erectile dysfunction due to diseases classified elsewhere Category: Medical Plan In office urinalysis results reviewed with the patient today; as noted above; will send for urine cytology. Continue alfuzosin. We did discussed at length potential causes of lower urinary tract symptoms, nephrolithiasis, and erectile dysfunction; we discussed further treatment options and risks and benefits of these treatment options. We discussed bladder triggers and irritants. We discussed importance of limiting fluids 2-3 hours prior to bed to decrease episodes of nocturia. Will obtain retroperitoneal ultrasound for further assessment evaluation. Will obtain PSA and A1c for further assessment evaluation. Follow-up in 1-3 months with labs and imaging; or sooner with any issues, concerns, and or questions. Orders: Orders US retroperitoneal comp Today N40.0 - Benign prostatic hyperplasia without lower urinary tract symptoms, R35.1 - Nocturia, R39.9 - Unspecified symptoms and signs involving the genitourinary system Prostate Specific Antigen Today E11.69 - Type 2 diabetes mellitus with other specified complication, N40.0 - Benign prostatic hyperplasia without lower urinary tract symptoms, N52.1 - Erectile dysfunction due to diseases classified elsewhere, R35.1 - Nocturia, R39.9 - Unspecified symptoms and signs involving the genitourinary system Hemoglobin A1c Today E11.9 - Type 2 diabetes mellitus without complications AMB Urinalysis Automated Today Z13.9 - Encounter for screening, unspecified Patient Instructions: The patient had an opportunity to ask questions regarding the treatment plan. All questions were answered. Physical exam, labs, and imaging were discussed and reviewed in detail. As well as risks, benefits, and discussion of treatment choices. No major barriers to understanding were identified. The patient expressed understanding and agreement with the above treatment plan. The patient was made aware they should contact our office by phone for worsening of their current condition, the appearance of new symptoms, or with any questions or concerns. Compliance is encouraged with any medications and follow up testing that is ordered. It is a privilege to be allowed the opportunity to participate in? your urological care.? Again, if you have any questions or concerns If you have any questions or concerns please do not hesitate to contact me. The office is [phone]. This note is constructed using voice recognition software. While every effort has been made to ensure accuracy judo instructor errors may have been included. Yours sincerely, NAYELY Monzon Coding Level of Care Code New Pt Level 3 (49773) Diagnoses Lower urinary tract symptoms R39.9 Enlarged prostate N40.0 Nocturia R35.1 Erectile dysfunction associated with type 2 diabetes mellitus E11.69; N52.1
--- OUTSIDE RECORDS SUMMARY | 2025-01-16 18:28 | XMS_ITS | Clinical Summary ---
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 E11.49 4 Active blood sugar diagnostic (FreeStyle Lite Strips) test strip 1 Device by Does not apply route daily for 360 days. E11.49 2 Active FREESTYLE LANCETS MISC 1 Units by Does not apply route daily. E11.49 2 Active allopurinoL (ZYLOPRIM) 100 mg tablet Take 1 tablet (100 mg total) by mouth 1 (one) time each day. 90 tablet 3 5 Active lisinopriL (PRINIVIL,ZESTR IL) 20 mg tablet Take 1 tablet (20 mg total) by mouth 1 (one) time each day. 90 tablet 3 5 Active alfuzosin (UROXATRAL) 10 mg 24 hr tablet Take 1 tablet (10 mg total) by mouth at bedtime. 90 tablet 3 5 Active albuterol HFA (PROAIR HFA ; PROVENTIL HFA ; VENTOLIN HFA) 90 mcg/actuation inhaler Inhale 2 puffs by mouth every 4 (four) hours if needed for wheezing. 6.7 g 11 5 Active vardenafiL (LEVITRA) 20 mg tablet Take 1 tablet (20 mg total) by mouth 1 (one) time each day if needed for erectile dysfunction. 10 tablet 11 5 Active tadalafiL (CIALIS) 5 mg tablet Take 1 tablet (5 mg total) by mouth 1 (one) time each day. 30 tablet 11 5 Active glipiZIDE (GLUCOTROL) 5 mg tablet Take 2 tabs with breakfast and 1 tab with dinner every day 270 tablet 3 5 Active atorvastatin (LIPITOR) 20 mg tablet Take 1 tablet (20 mg total) by mouth 1 (one) time each day. 90 each 3 5 Active Active Problems Problem Noted Date Diagnosed Date Known medical problems 02/08/2024 Overview (02/08/2024): hx of kidney stone Triceps tendon rupture, right, sequela Bilateral cataracts 08/08/2022 Overview (02/08/2024): Early cataracts OU, observation recommended. Eye exam 12/10/2021 Diabetes mellitus with cataract (CMS/HCC V24, CM S/HCC V28) 08/08/2022 Diabetes mellitus, new onset (CMS/HCC V24, CMS/H CC V28) 01/03/2022 CKD (chronic kidney disease) stage 3, GFR 30-59 ml/min (CMS/HCC V24, CMS/HCC V28) 11/30/2020 Snoring 08/04/2019 Overview (02/08/2024): 07/2019 Home Sleep Study did not reveal sleep apnea or nocturnal hypoxia. Erectile dysfunction 01/17/2019 Non-seasonal allergic rhinitis due to pollen 05/2016 BPH with obstruction/lower urinary tract symptom s 10/26/2014 Renal cyst 01/20/2014 HTN (hypertension) 12/09/2012 Shoulder pain 09/13/2010 Overview (02/08/2024): Pain clinic eval Injections Not helpful Kidney stone 03/23/2009 Overview (02/08/2024): Had lithtripsy Encounters Date Type Department Care Team Description 12/05/2024 3:45 PM EDT Consult General Surgery - [place] [address] [place] [address] Terry Stack MD Localized soft tissue swelling present on examination (Primary Dx); Breast prominence 10/24/2024 2:44 PM EDT - 10/24/2024 11:59 PM EDT Hospital Encounter Radiology Department - [address] [phone] Need for vaccination against Streptococcus pneumoniae; Stage 3 chronic kidney disease, unspecified whether stage 3a or 3b CKD ([facility] V24, [facility] V28); Diabetes mellitus with cataract ([facility] V24, [facility] V28); Diabetes mellitus, new onset ([facility] V24, [facility] V28); BPH with obstruction/lower urinary tract symptoms; Primary hypertension Discharge Disposition: Home or Self Care 10/24/2024 2:44 PM EDT - 10/24/2024 11:59 PM EDT Hospital Encounter Radiology Department - [address] [phone] Axillary mass, bilateral Discharge Disposition: Home or Self Care 10/24/2024 Telephone [facility] - [address] [phone] Stephon Valero PA from Last 3 Months Immunizations Name Administration Dates Next Due Influenza Quadravalent, MDCK , 0.5ml, preservative free (Flucelvax) 6mo and older 04/17/2023,04/11/2022,04/12/2021,06/01 Influenza trivalent, 0.5mL, preservative free (Fluarix; FluLaval; Fluzone) ages 6mo and older (Afluria) 3 years and older 03/29/2016 Influenza trivalent, MDCK, 0 .5mL, preservative free (Flucelvax) 6mo and older 06/06/2024 Influenza trivalent, with pr eservative (Fluzone; Afluria) 6mo and older 05/08/2016,02/01/2015,02/02/2014,03/21 Influenza, Unspecified 02/07/2017 Pfizer SARS-CoV-2 COVID-19, mRNA, LNP-S, preservative free 06/08/2021 Pneumococcal conjugate 20 va lent (Prevnar 20, PCV 20) 2mo and older 10/11/2024 Pneumococcal polysaccharide 23 valent (Pneumovax 23) 2yo and older 04/11/2022 Td Tetanus diptheria (Tdvax) 7yo and older 07/27/2019 Tdap Tetanus diptheria acell ular pertussis (Boostrix; Adacel) 7yo and older 03/23/2009,10/19/2006 Zoster recombinant (Shingrix ) 19yo and older 06/08/2021 Surgical History Surgery Date Site/Laterality Comments OTHER SURGICAL HISTORY PROCEDURE: HISTORY OTHER; COMMENT: arthroscopic shoulder on left 2006 HERNIA REPAIR 05/29/2010 PROCEDURE: HISTORICAL HERNIA REPAIR/UMB; COMMENT: Dr. Fontana COLONOSCOPY 03/31/2013 PROCEDURE: HISTORICAL COLONOSCOPY; COMMENT: hemorrhoids; repeat in 10 yrs OTHER SURGICAL HISTORY PROCEDURE: KIDNEY STONE ANALYSIS; COMMENT: lithotripsy Medical History Medical History Date Comments Urolithiasis 03/23/2009 DX:Urolithiasis Shoulder pain 09/13/2010 DX:Shoulder pain Renal cyst 01/20/2014 DX:Renal cyst Family History Medical History Relation Name Comments Other: no info Father Stroke Mother at age 62 Relation Name Status Comments Brother 1 Alive Brother 2 Alive Father seizure disorde r Mother (Age 63) stroke Sister brain anuerysm Social History Tobacco Use Types Packs/Day Years Used Date Smoking Tobacco: Former Cigarettes Q uit: 05/11/1995 Smokeless Tobacco: Never Alcohol Use Standard Drinks/Week Comments No 0 (1 standard drink = 0.6 oz pur e alcohol) Sex and Gender Information Value Date Recorded Sex Assigned at Not on file Legal Sex Male 2:00 AM EST Gender Identity Not on file Sexual Orientation Not on file Obstetrics History Last Filed Vital Signs Vital Sign Reading Time Taken Comments Blood Pressure 107/70 12/05/2024 3:37 PM EDT Pulse 89 12/05/2024 3:37 PM EDT Temperature 35.8 C (96.4 F) 10/11/2024 3:31 PM EDT Respiratory Rate 16 10/11/2024 3:31 PM EDT Oxygen Saturation - - Inhaled Oxygen Concentration - - Weight 92.3 kg (203 lb 6.4 oz) 12/05/2024 3:37 P M EDT Height 177.8 cm (5' 10 ) 12/05/2024 3:37 PM EDT Body Mass Index 29.18 12/05/2024 3:37 PM EDT Plan of Treatment Upcoming Encounters Date Type Department Care Team (Late st Contact Info) Description 03/01/2025 3:30 PM EDT Office Visit [facility] [address] [phone] Stephon Valero PA [address] [place] [phone] Health Maintenance Due Date Last Done Comments Hepatitis A Vaccines (1 of 2 - Risk 2-dose series) 1980 Hepatitis B Vaccines (1 of 3 - Risk 3-dose series) 2021 RSV Immunization Adult Patients (1 - Risk 60-74 years 1-dose series) 2021 Zoster Vaccines (2 of 2) 08/03/2021 06/08/2021 HIV Screening 04/19/2022 Social Influencers of Health Screening 04/19/2022 Diabetes: Annual Foot Exam 04/17/2024 04/17/2023 Depression Screening 05/11/2024 Diabetes: Annual Retina Eye Exam 12/28/2024 12/29/2023 COVID-19 Vaccine ( season) 2025 06/08/2021, 10/06/2020, 09/15/2020 Influenza Vaccine (#1) 2025 , 04/17/2023, 04/11/2022, Additional history exists Diabetes: Blood Sugar Control Test (HGBA1C) 04/12/2025 10/11/2024, 06/06/2024, 12/14/2023, Additional history exists Diabetes: Annual Urine Albumin-Creatinine Ratio (uACR) 10/11/2025 10/11/2024, 06/06/2024, 12/14/2023 Diabetes: Annual GFR (Glomerular Filtration Rate) 10/11/2025 10/11/2024, 06/06/2024, 12/14/2023, Additional history exists Hypertension/CHF/CAD Annual BMP Blood Test 10/11/2025 10/11/2024, 06/06/2024, 12/14/2023, Additional history exists DTaP,Tdap,and Td Vaccines (4 - Td or Tdap) 07/26/2029 07/27/2019, 03/23/2009, 10/19/2006 Cholesterol Screening (Lipid Panel) 10/11/2029 10/11/2024, 06/06/2024, 12/14/2023, Additional history exists Colorectal Cancer Screening: Colonoscopy 10/11/2033 10/12/2023 Hepatitis C Screening Completed 02/18/2023 Pneumococcal Vaccine: 50+ Years Completed 10/11/2024, 04/11/2022 HIB Vaccines Aged Out No longer eligi ble based on patient's age to complete this topic HPV Vaccines Aged Out No longer eligi ble based on patient's age to complete this topic IPV Vaccines Aged Out No longer eligi ble based on patient's age to complete this topic MMR Vaccines Aged Out No longer eligi ble based on patient's age to complete this topic Meningococcal ACWY Vaccine Aged Out N o longer eligible based on patient's age to complete this topic Meningococcal B Vaccine Aged Out No l onger eligible based on patient's age to complete this topic RSV Immunization Patients Under 20 months Aged Out No longer eligible based on patient's age to complete this topic Varicella Vaccines Aged Out No longer eligible based on patient's age to complete this topic Procedures Procedure Name Priority Date/Time Associated Diagnosis Comments US AXILLA (BREAST) LIMITED RIGHT Routine 10/24/2024 3:19 PM EDT Need for vaccination against Streptococcus pneumoniae Stage 3 chronic kidney disease, unspecified whether stage 3a or 3b CKD (CMS/HCC V24, CMS/HCC V28) BPH with obstruction/lower urinary tract symptoms Primary hypertension US AXILLA (BREAST) LIMITED LEFT Routine 10/24/2024 3:19 PM EDT Need for vaccination against Streptococcus pneumoniae Stage 3 chronic kidney disease, unspecified whether stage 3a or 3b CKD (CMS/HCC V24, CMS/HCC V28) BPH with obstruction/lower urinary tract symptoms Primary hypertension MG MAMMO DIGITAL DIAGNOSTIC W SHAVON BILAT Routine 10/24/2024 3:01 PM EDT Axillary mass, bilateral MICROALBUMIN CREATININE URINE RATIO Routine 10/11/2024 4:25 PM EDT Need for vaccination against Streptococcus pneumoniae Stage 3 chronic kidney disease, unspecified whether stage 3a or 3b CKD (CMS/HCC V24, CMS/HCC V28) Diabetes mellitus with cataract (CMS/HCC V24, CMS/HCC V28) Diabetes mellitus, new onset (CMS/HCC V24, CMS/HCC V28) BPH with obstruction/lower urinary tract symptoms Primary hypertension COMPREHENSIVE METABOLIC PANEL Routine 10/11/2024 4:25 PM EDT Need for vaccination against Streptococcus pneumoniae Stage 3 chronic kidney disease, unspecified whether stage 3a or 3b CKD (CMS/HCC V24, CMS/HCC V28) Diabetes mellitus with cataract (CMS/HCC V24, CMS/HCC V28) Diabetes mellitus, new onset (CMS/HCC V24, CMS/HCC V28) BPH with obstruction/lower urinary tract symptoms Primary hypertension HEMOGLOBIN A1C Routine 10/11/2024 4:25 PM EDT Need for vaccination against Streptococcus pneumoniae Stage 3 chronic kidney disease, unspecified whether stage 3a or 3b CKD (CMS/HCC V24, CMS/HCC V28) Diabetes mellitus with cataract (CMS/HCC V24, CMS/HCC V28) Diabetes mellitus, new onset (CMS/HCC V24, CMS/HCC V28) BPH with obstruction/lower urinary tract symptoms Primary hypertension LIPID PANEL WITH REFLEX TO DIRECT LDL Routine 10/11/2024 4:25 PM EDT Need for vaccination against Streptococcus pneumoniae Stage 3 chronic kidney disease, unspecified whether stage 3a or 3b CKD (CMS/HCC V24, CMS/HCC V28) Diabetes mellitus with cataract (CMS/HCC V24, CMS/HCC V28) Diabetes mellitus, new onset (CMS/HCC V24, CMS/HCC V28) BPH with obstruction/lower urinary tract symptoms Primary hypertension HM DIABETES EYE EXAM Routine 12/29/2023 COLONOSCOPY Routine 10/12/2023 DIABETES FOOT EXAM Routine 04/17/2023 HEPATITIS C SCREENING Routine 02/18/2023 from Last 3 Months or Most Recently Relevant to Health Maintenance Results * US Axilla (Breast) Limited Right (10/24/2024 3:19 PM EDT) Anatomical Region Laterality Modality Breast Right Ultrasound 10/24/2024 3:04 PM EDT Impressions 10/24/2024 3:28 PM EDT 1. No mammographic or sonographic evidence of malignancy evidence of malignancy in area of clinical concern. Due to prominence of the axilla and increase in size over the year, surgical consultation is recommended 2. Fatty breast parenchyma Findings and recommendations were conveyed to the patient. BI-RADS CATEGORY: 2 - BENIGN RECOMMENDATION: Surgical consultation/management recommended. Surgical consultation/management recommended. Surgical consultation is recommended due to prominence of the bilateral axillary increase in size over the year. Mammo Location: [facility], [address] [place] [address], [id number], . -------- FINAL REPORT -------- Dictated By: Rosalia Lancaster Dictated Date: 10/24/2024 15:04 ET Assigned Physician: Rosalia Lancaster Reviewed and Electronically Signed By: Rosalia Lancaster Signed Date: 10/24/2024 15:28 ET Workstation ID: [id number] Transcribed By: Self Edit Transcribed Date: 10/24/2024 15:25 ET Narrative 10/24/2024 3:28 PM EDT BILATERALDIGITAL DIAGNOSTIC 3D MAMMOGRAPHY HISTORY: Workup for bilateral axillary palpable abnormalities/fullness in male patient. Patient states these areas have gradually been increasing in size over the year COMPARISON: Baseline Technique: Full field CC and MLO views, bilateral CC and MLO spot compression 3- D FINDINGS: Right: No suspicious masses, microcalcifications or areas of architectural distortion. Typically benign gynecomastia is present. Area of clinical concern corresponds to fat. Left: No suspicious masses, microcalcifications or areas of architectural distortion. Mild typically benign gynecomastia is present. Area of clinical concern corresponds to fat. BREAST DENSITY: A - The breasts are almost entirely fatty. EXAM: BILATERAL AXILLARY TARGETED ULTRASOUND EVALUATION HISTORY: Workup for bilateral axillary palpable abnormality/fullness TECHNIQUE: Ultrasonographic examination is performed using a linear array transducer. Targeted bilateral axillary ultrasound in area of clinical concern. Real-time sonographic scanning was also performed by the radiologist. FINDINGS: In the bilateral axilla, no sonographic evidence of malignancy or other focal abnormalities were identified. Typically benign lymph nodes are present. Procedure Note Rosalia Lancaster MD - 10/24/2024 BILATERALDIGITAL DIAGNOSTIC 3D MAMMOGRAPHY HISTORY: Workup for bilateral axillary palpable abnormalities/fullness inmale patient. Patient states these areas have gradually been increasingin size over the year COMPARISON: Baseline Technique: Full field CC and MLO views, bilateral CC and MLO spotcompression 3-D FINDINGS: Right: No suspicious masses, microcalcifications or areas of architecturaldistortion. Typically benign gynecomastia is present. Area of clinicalconcern corresponds to fat. Left: No suspicious masses, microcalcifications or areas of architecturaldistortion. Mild typically benign gynecomastia is present. Area ofclinical concern corresponds to fat. BREAST DENSITY: A - The breasts are almost entirely fatty. EXAM: BILATERAL AXILLARY TARGETED ULTRASOUND EVALUATION HISTORY: Workup for bilateral axillary palpable abnormality/fullness TECHNIQUE: Ultrasonographic examination is performed using a linear arraytransducer. Targeted bilateral axillary ultrasound in area of clinicalconcern. Real-time sonographic scanning was also performed by theradiologist. FINDINGS: In the bilateral axilla, no sonographic evidence of malignancy or otherfocal abnormalities were identified. Typically benign lymph nodes arepresent. IMPRESSION: 1. No mammographic or sonographic evidence of malignancy evidence ofmalignancy in area of clinical concern. Due to prominence of the axillaand increase in size over the year, surgical consultation is recommended 2. Fatty breast parenchyma Findings and recommendations were conveyed to the patient. BI-RADS CATEGORY: 2 - BENIGN RECOMMENDATION: Surgical consultation/management recommended. Surgicalconsultation/management recommended. Surgical consultation is recommendeddue to prominence of the bilateral axillary increase in size over theyear. Mammo Location: [facility], [address] [place] [address], [id number], . -------- FINAL REPORT -------- Dictated By: Rosalia Lancaster Dictated Date: 10/24/2024 15:04 ET Assigned Physician: Rosalia Lancaster Reviewed and Electronically Signed By: Rosalia Lancaster Signed Date: 10/24/2024 15:28 ET Workstation ID: [id number] Transcribed By: Self Edit Transcribed Date: 10/24/2024 15:25 ET us Stephon ROSE IMG US PROCEDURES Final R esult * US Axilla (Breast) Limited Left (10/24/2024 3:19 PM EDT) Anatomical Region Laterality Modality Breast Left Ultrasound 10/24/2024 3:04 PM EDT Impressions 10/24/2024 3:28 PM EDT 1. No mammographic or sonographic evidence of malignancy evidence of malignancy in area of clinical concern. Due to prominence of the axilla and increase in size over the year, surgical consultation is recommended 2. Fatty breast parenchyma Findings and recommendations were conveyed to the patient. BI-RADS CATEGORY: 2 - BENIGN RECOMMENDATION: Surgical consultation/management recommended. Surgical consultation/management recommended. Surgical consultation is recommended due to prominence of the bilateral axillary increase in size over the year. Mammo Location: [facility], [address] [place] [address], [id number], . -------- FINAL REPORT -------- Dictated By: Rosalia Lancaster Dictated Date: 10/24/2024 15:04 ET Assigned Physician: Rosalia Lancaster Reviewed and Electronically Signed By: Rosalia Lancaster Signed Date: 10/24/2024 15:28 ET Workstation ID: [id number] Transcribed By: Self Edit Transcribed Date: 10/24/2024 15:25 ET Narrative 10/24/2024 3:28 PM EDT BILATERALDIGITAL DIAGNOSTIC 3D MAMMOGRAPHY HISTORY: Workup for bilateral axillary palpable abnormalities/fullness in male patient. Patient states these areas have gradually been increasing in size over the year COMPARISON: Baseline Technique: Full field CC and MLO views, bilateral CC and MLO spot compression 3- D FINDINGS: Right: No suspicious masses, microcalcifications or areas of architectural distortion. Typically benign gynecomastia is present. Area of clinical concern corresponds to fat. Left: No suspicious masses, microcalcifications or areas of architectural distortion. Mild typically benign gynecomastia is present. Area of clinical concern corresponds to fat. BREAST DENSITY: A - The breasts are almost entirely fatty. EXAM: BILATERAL AXILLARY TARGETED ULTRASOUND EVALUATION HISTORY: Workup for bilateral axillary palpable abnormality/fullness TECHNIQUE: Ultrasonographic examination is performed using a linear array transducer. Targeted bilateral axillary ultrasound in area of clinical concern. Real-time sonographic scanning was also performed by the radiologist. FINDINGS: In the bilateral axilla, no sonographic evidence of malignancy or other focal abnormalities were identified. Typically benign lymph nodes are present. Procedure Note Rosalia Lancaster MD - 10/24/2024 BILATERALDIGITAL DIAGNOSTIC 3D MAMMOGRAPHY HISTORY: Workup for bilateral axillary palpable abnormalities/fullness inmale patient. Patient states these areas have gradually been increasingin size over the year COMPARISON: Baseline Technique: Full field CC and MLO views, bilateral CC and MLO spotcompression 3-D FINDINGS: Right: No suspicious masses, microcalcifications or areas of architecturaldistortion. Typically benign gynecomastia is present. Area of clinicalconcern corresponds to fat. Left: No suspicious masses, microcalcifications or areas of architecturaldistortion. Mild typically benign gynecomastia is present. Area ofclinical concern corresponds to fat. BREAST DENSITY: A - The breasts are almost entirely fatty. EXAM: BILATERAL AXILLARY TARGETED ULTRASOUND EVALUATION HISTORY: Workup for bilateral axillary palpable abnormality/fullness TECHNIQUE: Ultrasonographic examination is performed using a linear arraytransducer. Targeted bilateral axillary ultrasound in area of clinicalconcern. Real-time sonographic scanning was also performed by theradiologist. FINDINGS: In the bilateral axilla, no sonographic evidence of malignancy or otherfocal abnormalities were identified. Typically benign lymph nodes arepresent. IMPRESSION: 1. No mammographic or sonographic evidence of malignancy evidence ofmalignancy in area of clinical concern. Due to prominence of the axillaand increase in size over the year, surgical consultation is recommended 2. Fatty breast parenchyma Findings and recommendations were conveyed to the patient. BI-RADS CATEGORY: 2 - BENIGN RECOMMENDATION: Surgical consultation/management recommended. Surgicalconsultation/management recommended. Surgical consultation is recommendeddue to prominence of the bilateral axillary increase in size over theyear. Mammo Location: [facility], [address] [place] [address], [id number], . -------- FINAL REPORT -------- Dictated By: Rosalia Lancaster Dictated Date: 10/24/2024 15:04 ET Assigned Physician: Rosalia Lancaster Reviewed and Electronically Signed By: Rosalia Lancaster Signed Date: 10/24/2024 15:28 ET Workstation ID: [id number] Transcribed By: Self Edit Transcribed Date: 10/24/2024 15:25 ET us Stephon ROSE IMG US PROCEDURES Final R esult * MG Mammo Digital Diagnostic w Shavon bilat (10/24/2024 3:01 PM EDT) Anatomical Region Laterality Modality Breast Bilateral Mammography 10/24/2024 3:04 PM EDT Impressions 10/24/2024 3:28 PM EDT 1. No mammographic or sonographic evidence of malignancy evidence of malignancy in area of clinical concern. Due to prominence of the axilla and increase in size over the year, surgical consultation is recommended 2. Fatty breast parenchyma Findings and recommendations were conveyed to the patient. BI-RADS CATEGORY: 2 - BENIGN RECOMMENDATION: Surgical consultation/management recommended. Surgical consultation/management recommended. Surgical consultation is recommended due to prominence of the bilateral axillary increase in size over the year. Mammo Location: [facility], [address] [place] [address], [id number], . -------- FINAL REPORT -------- Dictated By: Rosalia Lancaster Dictated Date: 10/24/2024 15:04 ET Assigned Physician: Rosalia Lancaster Reviewed and Electronically Signed By: Rosalia Lancaster Signed Date: 10/24/2024 15:28 ET Workstation ID: [id number] Transcribed By: Self Edit Transcribed Date: 10/24/2024 15:25 ET Narrative 10/24/2024 3:28 PM EDT BILATERALDIGITAL DIAGNOSTIC 3D MAMMOGRAPHY HISTORY: Workup for bilateral axillary palpable abnormalities/fullness in male patient. Patient states these areas have gradually been increasing in size over the year COMPARISON: Baseline Technique: Full field CC and MLO views, bilateral CC and MLO spot compression 3- D FINDINGS: Right: No suspicious masses, microcalcifications or areas of architectural distortion. Typically benign gynecomastia is present. Area of clinical concern corresponds to fat. Left: No suspicious masses, microcalcifications or areas of architectural distortion. Mild typically benign gynecomastia is present. Area of clinical concern corresponds to fat. BREAST DENSITY: A - The breasts are almost entirely fatty. EXAM: BILATERAL AXILLARY TARGETED ULTRASOUND EVALUATION HISTORY: Workup for bilateral axillary palpable abnormality/fullness TECHNIQUE: Ultrasonographic examination is performed using a linear array transducer. Targeted bilateral axillary ultrasound in area of clinical concern. Real-time sonographic scanning was also performed by the radiologist. FINDINGS: In the bilateral axilla, no sonographic evidence of malignancy or other focal abnormalities were identified. Typically benign lymph nodes are present. Procedure Note Rosalia Lancaster MD - 10/24/2024 BILATERALDIGITAL DIAGNOSTIC 3D MAMMOGRAPHY HISTORY: Workup for bilateral axillary palpable abnormalities/fullness inmale patient. Patient states these areas have gradually been increasingin size over the year COMPARISON: Baseline Technique: Full field CC and MLO views, bilateral CC and MLO spotcompression 3-D FINDINGS: Right: No suspicious masses, microcalcifications or areas of architecturaldistortion. Typically benign gynecomastia is present. Area of clinicalconcern corresponds to fat. Left: No suspicious masses, microcalcifications or areas of architecturaldistortion. Mild typically benign gynecomastia is present. Area ofclinical concern corresponds to fat. BREAST DENSITY: A - The breasts are almost entirely fatty. EXAM: BILATERAL AXILLARY TARGETED ULTRASOUND EVALUATION HISTORY: Workup for bilateral axillary palpable abnormality/fullness TECHNIQUE: Ultrasonographic examination is performed using a linear arraytransducer. Targeted bilateral axillary ultrasound in area of clinicalconcern. Real-time sonographic scanning was also performed by theradiologist. FINDINGS: In the bilateral axilla, no sonographic evidence of malignancy or otherfocal abnormalities were identified. Typically benign lymph nodes arepresent. IMPRESSION: 1. No mammographic or sonographic evidence of malignancy evidence ofmalignancy in area of clinical concern. Due to prominence of the axillaand increase in size over the year, surgical consultation is recommended 2. Fatty breast parenchyma Findings and recommendations were conveyed to the patient. BI-RADS CATEGORY: 2 - BENIGN RECOMMENDATION: Surgical consultation/management recommended. Surgicalconsultation/management recommended. Surgical consultation is recommendeddue to prominence of the bilateral axillary increase in size over theyear. Mammo Location: [facility], [address] [place] [address], [id number], . -------- FINAL REPORT -------- Dictated By: Rosalia Lancaster Dictated Date: 10/24/2024 15:04 ET Assigned Physician: Rosalia Lancaster Reviewed and Electronically Signed By: Rosalia Lancaster Signed Date: 10/24/2024 15:28 ET Workstation ID: [id number] Transcribed By: Self Edit Transcribed Date: 10/24/2024 15:25 ET Stephon ROSE IMG BI PROCEDURES Final R esult * (ABNORMAL) Lipid panel with reflex to direct LDL (10/11/2024 4:25 PM EDT) Cholesterol 186 0 - 200 mg/dL LAB CHEMISTRY METHOD 10/11/2024 8:18 PM EDT [facility] Triglycerides 214(H) 0 - 150 mg/dL LAB CHEMISTRY METHOD 10/11/2024 8:18 PM EDT [facility] HDL 35(L) >=40 mg/dL LAB CHEMISTRY METHOD 10/11/2024 8:18 PM EDT [facility] LDL Calculated 108(H) 0 - 100 mg/dL LAB CHEMISTRY METHOD 10/11/2024 8:18 PM EDT [facility] VLDL Cholesterol Jarrod 42.8 mg/dL LAB CHEMISTRY METHOD 10/11/2024 8:18 PM EDT [facility] Non HDL Chol. (LDL+VLDL) 151(H) <145 mg/dL LAB CHEMISTRY METHOD 10/11/2024 8:18 PM EDT [facility] Chol/HDL Ratio 5.3(H) 0.0 - 4.4 LAB CHEMISTRY METHOD 10/11/2024 8:18 PM EDT [facility] Blood Venous blood specimen / Unknown Venipuncture / Unknown 10/11/2024 4:25 PM EDT 10/11/2024 4:25 PM EDT Stephon ROSE LAB BLOOD ORDERABLES Amy l Result Performing Organization Address City/[facility]/ZIP Co de Phone Number [facility] [address] [place] [address], [place] [phone] * Microalbumin creatinine urine ratio (10/11/2024 4:25 PM EDT) Creatinine, Urine 170.0 mg/dL LAB CHEMISTRY METHOD 10/11/2024 8:44 PM EDT [facility] Microalb, Ur 18.8 0.0 - 29.0 mg/L LAB CHEMISTRY METHOD 10/11/2024 8:44 PM EDT [facility] Microalb/Creat Ratio 11 <30 mg/g creat LAB CHEMISTRY METHOD 10/11/2024 8:44 PM EDT [facility] Urine Urine specimen obtained by clean catch procedure / Unknown Non-blood Collection / Unknown 10/11/2024 4:25 PM EDT 10/11/2024 4:25 PM EDT Stephon ROSE LAB URINE ORDERABLES Amy l Result Performing Organization Address City/[facility]/ZIP Co de Phone Number [facility] [address] [place] [address], * (ABNORMAL) Hemoglobin A1c (10/11/2024 4:25 PM EDT) [facility] Hemoglobin A1C 7.1(H) <6.5 % LAB CHEMISTRY METHOD 10/12/2024 10:21 AM EDT [facility] Mean Bld Glu Estim. 157 mg/dL LAB CHEMISTRY METHOD 10/12/2024 10:21 AM EDT [facility] Blood Venous blood specimen / Unknown Venipuncture / Unknown 10/11/2024 4:25 PM EDT 10/11/2024 4:25 PM EDT Stephon ROSE LAB BLOOD ORDERABLES Amy l Result [facility] [address] [place] [address], * (ABNORMAL) Comprehensive metabolic panel (10/11/2024 4:25 PM EDT) [facility] Sodium 136 133 - 145 mmol/L LAB CHEMISTRY METHOD 10/11/2024 8:18 PM EDT [facility] Potassium 4.3 3.5 - 5.5 mmol/L LAB CHEMISTRY METHOD 10/11/2024 8:18 PM EDT [facility] Chloride 103 96 - 110 mmol/L LAB CHEMISTRY METHOD 10/11/2024 8:18 PM EDT [facility] CO2 28 21 - 32 mmol/L LAB CHEMISTRY METHOD 10/11/2024 8:18 PM EDT [facility] Anion Gap 5 3 - 11 LAB CHEMISTRY METHOD 10/11/2024 8:18 PM EDT [facility] Glucose 118(H) 70 - 100 mg/dL LAB CHEMISTRY METHOD 10/11/2024 8:18 PM EDT [facility] BUN 17 5 - 25 mg/dL LAB CHEMISTRY METHOD 10/11/2024 8:18 PM [facility] Creatinine 1.37(H) 0.70 - 1.30 mg/dL LAB CHEMISTRY METHOD 10/11/2024 8:18 PM [facility] eGFR 58(L) >=60 mL/min/1. 73m2 LAB CHEMISTRY METHOD 10/11/2024 8:18 PM [facility] Comment:Calculation based on the Chronic Kidney Disease Epidemiology Collaboration (CKD-EPI) equation refit without adjustment for race. BUN/Creatinine Ratio 12.4 LAB CHEMISTRY METHOD 10/11/2024 8:18 PM [facility] Calcium 10.1 8.5 - 10.5 mg/dL LAB CHEMISTRY METHOD 10/11/2024 8:18 PM [facility] AST (SGOT) 22 10 - 42 unit/L LAB CHEMISTRY METHOD 10/11/2024 8:18 PM [facility] ALT (SGPT) 47 10 - 60 unit/L LAB CHEMISTRY METHOD 10/11/2024 8:18 PM [facility] Alkaline Phosphatase 116 42 - 121 unit/L LAB CHEMISTRY METHOD 10/11/2024 8:18 PM [facility] Total Protein 8.0 6.0 - 8.0 g/dL LAB CHEMISTRY METHOD 10/11/2024 8:18 PM [facility] Albumin 4.3 3.2 - 5.0 g/dL LAB CHEMISTRY METHOD 10/11/2024 8:18 PM [facility] Total Bilirubin 0.5 0.0 - 1.4 mg/dL LAB CHEMISTRY METHOD 10/11/2024 8:18 PM [facility] Blood Venous blood specimen / Unknown Venipuncture / Unknown 10/11/2024 4:25 PM EDT 10/11/2024 4:25 PM EDT Stephon ROSE LAB BLOOD ORDERABLES Amy l Result [facility] ([facility] [address] [place] [address], [place] [phone] * Diabetes Eye Exam (12/29/2023) [facility] Diabetes: Annual Retina Eye Exam abstracted Historical Provider MD HEALTH MAINTENANCE Final Result * Colonoscopy (10/12/2023) [facility] Colonoscopy no interpretation , abstracted Anatomical Region Laterality Modality Other Historical Provider MD HEALTH MAINTENANCE Final Result * Diabetes Foot Exam (04/17/2023) [facility] Diabetes: Annual Foot Exam abstracted Historical Provider HEALTH MAINTENANCE Final Result * Hepatitis C Screening (02/18/2023) [facility] Hepatitis C Screening abstracted Historical Provider HEALTH MAINTENANCE Final Result from Last 3 Months or Most Recently Relevant to Health Maintenance Insurance [facility] Advance Directives Documents on File Type Date Recorded 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 Health Care Decision (hx) 03/29/2016 AD STAPLES DIRECTIVE Health Care Decision (hx) 03/29/2016 AD STAPLES DIRECTIVE Health Care Decision (hx) 03/29/2016 AD STAPLES DIRECTIVE Health Care Decision (hx) 03/29/2016 AD STAPLES DIRECTIVE Health Care Decision (hx) 03/29/2016 AD STAPLES DIRECTIVE Health Care Decision (hx) 03/29/2016 AD STAPLES DIRECTIVE Health Care Decision (hx) 03/29/2016 AD STAPLES DIRECTIVE Health Care Decision (hx) 03/29/2016 AD STAPLES DIRECTIVE Care Teams Hand Alterations Seamstress Relationship Specialty Start Date End Date Stephon Valero PA [address] [place] [id number] PCP - General Internal Medicine 11/30/20
--- OUTSIDE RECORDS SUMMARY | 2025-01-16 18:28 | XMS_ITS | Clinical Summary ---
Author Organization [facility] Facility Address [address] [place] [id number] Care Team Providers Care Streetcar Conductor Name Role Phone Stephon Valero PA-C Primary Care Provider Allergies No known active allergies Medications lisinopril 20 MG tablet Take 20 mg by mouth in the morning. Active tamsulosin (FLOMAX) 0.4 MG 24 hr capsule Take 0.4 mg by mouth in the morning. Active traMADol (ULTRAM) 50 MG tablet Take 50 mg by mouth every 6 (six) hours if needed 10/31/2021 Active glipiZIDE (GLUCOTROL) 5 MG tablet Take 5 mg by mouth 1 (one) time each day 01/03/2022 Active allopurinol (ZYLOPRIM) 100 MG tablet Take 1 tablet (100 mg total) by mouth 1 (one) time each day 90 tablet 3 07/06/2023 Active Active Problems Problem Noted Date Diagnosed Date Obstructive nephropathy 06/30/2022 Stage 3b chronic kidney disease 01/20/2022 Acute nontraumatic kidney injury 01/20/2022 Cyst of kidney 01/20/2022 Nephrolithiasis 01/20/2022 Benign prostatic hyperplasia 01/20/2022 Urinary bladder stone 01/20/2022 Fatty liver 01/20/2022 Hypertension 01/20/2022 Family History Medical History Relation Comments Stroke Mother Relation Status Comments Mother Social History Tobacco Use Types Packs/Day Years Used Date Smoking Tobacco: Former Cigarettes Q uit: 05/11/1995 Smokeless Tobacco: Never Tobacco Cessation:Counseling Given: Not Answered Alcohol Use Standard Drinks/Week Comments Never 0 (1 standard drink = 0.6 oz pur e alcohol) Sex and Gender Information Value Date Recorded Sex Assigned at Not on file Legal Sex Male 9:56 AM EDT Gender Identity Not on file Sexual Orientation Not on file Last Filed Vital Signs Vital Sign Reading Time Taken Comments Blood Pressure 126/72 06/30/2022 8:07 AM EST Pulse 86 06/30/2022 8:07 AM EST Temperature - - Respiratory Rate - - Oxygen Saturation 96% 06/30/2022 8:07 AM EST Inhaled Oxygen Concentration - - Weight 96.7 kg (213 lb 3.2 oz) 06/30/2022 8:07 A M EST Height 177.8 cm (5' 10 ) 06/30/2022 8:07 AM EST Body Mass Index 30.59 06/30/2022 8:07 AM EST Plan of Treatment Health Maintenance Due Date Last Done Comments Pneumococcal Vaccine: 50+ Ye ars (1 of 2 - PCV) 1980 Colorectal Cancer Screening: Annual FOBT 2010 Colorectal Cancer Screening: Colonoscopy 2010 Colorectal Cancer Screening: Sigmoidoscopy 2010 Influenza Vaccine (#1) 2025 Hepatitis B Vaccine Aged Out No longe r eligible based on patient's age to complete this topic Insurance Care Teams Streetcar Conductor Relationship Specialty Start Date End Date Stephon Valero PA-C PCP - General Physician Gas Meter Installer Helper 01/20/22
--- OUTSIDE RECORDS SUMMARY | 2025-01-16 18:28 | XMS_ITS | Clinical Summary ---
Author Organization [facility] Address [address] [place] [address] Care Team Providers Care Geographic Analyst Name Role Phone Unavailable Primary Care Provider Unavailabl e Allergies No known active allergies Medications lisinopril 20 MG tablet Take 20 mg by mouth in the morning. 12/05/2022 Active allopurinol (Zyloprim) 100 MG tablet TAKE 1 TABLET BY MOUTH 1 TIME EACH DAY. 12/31/2022 Active glipiZIDE (Glucotrol) 5 MG tablet Take 5 mg by mouth in the morning. 12/31/2022 Active alfuzosin ER (Uroxatral) 10 MG 24 hr tablet Take 10 mg by mouth at bedtime. 12/05/2022 Active Social History Tobacco Use Types Packs/Day Years Used Date Smoking Tobacco: Never Smokeless Tobacco: Never Tobacco Cessation:Counseling Given: Not Answered Sex and Gender Information Value Date Recorded Sex Assigned at Male 02/11/2023 11:32 AM EDT Legal Sex Male 11:29 AM EDT Gender Identity Male 02/11/2023 11:32 AM EDT Sexual Orientation Choose not to disclose 2022 11:32 AM EDT Last Filed Vital Signs Vital Sign Reading Time Taken Comments Blood Pressure 147/73 03/04/2023 4:11 PM EDT Pulse 91 03/04/2023 4:11 PM EDT Temperature - - Respiratory Rate - - Oxygen Saturation - - Inhaled Oxygen Concentration - - Weight - - Height - - Body Mass Index - - Plan of Treatment Health Maintenance Due Date Last Done Comments CT Colonography 1961 Colonoscopy 1961 Colorectal Cancer Screening 1961 Dental Oral Exam 1961 Depression Screening 1961 FIT DNA/Cologuard 1961 FIT 1961 FOBT 1961 HIV Screening 1961 Lipid Panel 1961 SDOH Screening 1961 Sigmoidoscopy 1961 Disability Screening 1961 Alcohol/Substance Use Screening 1973 Hepatitis C Screening 07/10/1979 Hepatitis A Vaccines (1 of 2 - Risk 2-dose series) 1980 Hepatitis B Vaccines (1 of 3 - Risk 3-dose series) 2021 RSV Patients and Patients Aged 60 years or older (1 - Risk 60-74 years 1-dose series) 2021 Zoster Vaccines (2 of 2) 08/03/2021 06/08/2021 Pneumococcal Vaccine: 50+ Years (2 of 2 - PCV) 04/11/2023 04/11/2022 Dental Prophylaxis 09/04/2023 03/04/2023 Dental X-Ray: Bitewings 03/05/2024 03/04/2023 Tobacco Screening 03/10/2024 03/10/2023 COVID-19 Vaccine (4 - season) 2025 06/08/2021, 10/06/2020, 09/15/2020 Influenza Vaccine (#1) 2025 , 04/12/2021, 06/01/2018, Additional history exists Dental X-Ray: Full Mouth 03/05/2026 03/04/2023 DTaP/Tdap/Td Vaccines (4 - Td or Tdap) 07/26/2029 07/27/2019, 03/23/2009, 10/19/2006 HIB Vaccines Aged Out No longer eligi [...] patient's age to complete this topic Meningococcal Vaccine Aged Out No tanvi jade eligible based on patient's age to complete this topic RSV under 20 months Aged Out No longe r eligible based on patient's age to complete this topic Rotavirus Vaccines Aged Out No longer eligible based on patient's age to complete this topic Procedures Procedure Name Priority Date/Time Associated Diagnosis Comments PROPHYLAXIS - ADULT Routine 03/04/2023 4 :00 PM EDT INTRAORAL - COMPLETE SERIES OF RADIOGRAPHIC IMAGES Routine 03/04/2023 4:00 PM EDT from Last 3 Months or Most Recently Relevant to Health Maintenance Insurance DENTAL - [employer] DENT[employer] PPO
--- OUTSIDE RECORDS SUMMARY | 2025-01-16 18:28 | XMS_ITS | Encounter Summary ---
Author Organization [facility] Address [address] [place] [address] Phone Care Team Providers Care Landing Man Name Role Phone Berny Roberts MD Primary Care Provider Diane rico Encounter Details Date Type Department Care Team (Late st Contact Info) Description 10/31/2021 Procedure Pass OR Admitting Dept - Virtual Department [address] [place] [address] Social History Tobacco Use Types Packs/Day Years Used Date Smoking Tobacco: Never Smokeless Tobacco: Never Alcohol Use Standard Drinks/Week Comments Never 0 (1 standard drink = 0.6 oz pur e alcohol) Sex and Gender Information Value Date Recorded Sex Assigned at Not on file Legal Sex Male 10:16 AM EDT Gender Identity Not on file Sexual Orientation Not on file documented as of this encounter Plan of Treatment Not on file documented as of this encounter Visit Diagnoses Not on filedocumented in this encounter Care Teams Landing Man Relationship Specialty Start Date End Date Berny Roberts MD PCP - General Internal Medicine 10/30/21 documented as of this encounter Additional Source Comments The information contained in this document represents components of the legal health record. It is not the complete legal health record.[facility]
--- OUTSIDE RECORDS SUMMARY | 2025-01-16 18:28 | XMS_ITS | Clinical Summary ---
Author Organization [facility] Address [address] [place] [address] Phone Care Team Providers Care Insurance Follow Up Specialist Name Role Phone Berny Roberts MD Primary Care Provider U navailable Allergies No known active allergies Medications lisinopril (PRINIVIL,ZESTR IL) 20 MG tablet Take 20 mg by mouth daily. Active tamsulosin (FLOMAX) 0.4 mg Cap Take 0.4 mg by mouth daily. Active traMADoL (ULTRAM) 50 mg tablet Take 1 tablet (50 mg total) by mouth every 6 (six) hours as needed for pain (specific location in comments). 20 tablet 10/31/2021 Active Active Problems No known active problems Social History Tobacco Use Types Packs/Day Years Used Date Smoking Tobacco: Never Smokeless Tobacco: Never Alcohol Use Standard Drinks/Week Comments Never 0 (1 standard drink = 0.6 oz pur e alcohol) Education Answer Date Recorded Are you interested in more education? Not on luke e 09/06/2022 Are you concerned about learning? Not on file 09/06/2022 No 09/06/2022 No 09/06/2022 Digital Access Answer Date Recorded No 10/05/2022 No 10/05/2022 No 10/05/2022 Reliable internet access at home? Not on file 10/05/2022 Device with a working camera? Not on file Sex and Gender Information Value Date Recorded Sex Assigned at Not on file Legal Sex Male 10:16 AM EDT Gender Identity Not on file Sexual Orientation Not on file Last Filed Vital Signs Vital Sign Reading Time Taken Comments Blood Pressure 169/91 10/31/2021 2:45 PM EDT Pulse 80 10/31/2021 2:45 PM EDT Temperature 36.2 C (97.2 F) 10/31/2021 1:47 PM EDT Respiratory Rate 16 10/31/2021 2:45 PM EDT Oxygen Saturation 96% 10/31/2021 2:45 PM EDT Inhaled Oxygen Concentration - - Weight 90.7 kg (200 lb) 10/30/2021 12:54 PM EDT Height 177.8 cm (5' 10 ) 10/30/2021 12:54 PM EDT Body Mass Index 28.7 10/30/2021 12:54 PM EDT Plan of Treatment Health Maintenance Due Date Last Done Comments Adult Td,Tdap Booster 1961 CREATININE LEVEL 1961 LIPID PANEL 1961 POTASSIUM LEVEL 1961 DEPRESSION SCREENING 1973 HEPATITIS C SCREENING 07/10/1979 HIV ONE-TIME SCREENING (18-6 5 YEARS) 07/10/1979 COLOGUARD 2006 COLONOSCOPY 2006 COLORECTAL CANCER SCREENING 2006 FIT TEST 2006 FOBT 2006 SIGMOIDOSCOPY 2006 VIRTUAL COLONOSCOPY 2006 PNEUMOCOCCAL VACCINES (50+ y ears) (1 of 1 - PCV) 07/10/2011 ZOSTER VACCINES (2 of 2) 08/03/2021 06/08/2021 INFLUENZA VACCINE (#1) 2024 COVID-19 VACCINE (2 - 2024-2 6 season) 2025 06/08/2021 RSV VACCINE (1 - 1-dose 75+ series) 2036 SMOKING STATUS SCREENING (On ce After 26 Yrs) Completed 10/30/2021 HEPATITIS A VACCINES Aged Out No long er eligible based on patient's age to complete this topic HIB VACCINES Aged Out No longer eligi ble based on patient's age to complete this topic MENINGOCOCCAL VACCINES (ACWY) Aged Out No longer eligible based on patient's age to complete this topic MENINGOCOCCAL VACCINES (B) Aged Out N o longer eligible based on patient's age to complete this topic Medical Devices Implanted Type Area Freight Weigher Device Identifier Shelf Expiration Date Model / Serial / Lot Stent Ureteral 6fr 22 To 30cm Stretch Coated Christine - [id number] Implanted:Qty: 1 on 10/31/2021 by Carlos Martinez MD at [facility] Right: Ureter [employer] [facility] 05/14/2024 [id number] / [id number] Description:Strings secured to penis with tape Insurance [place] [employer] [place] [employer] P[place] [employer] PPO [facility] WorldRemit[employer] PPO [facility] World[employer]itPORT PPO [facility] [place] [address] [facility] [employer] P[place] [facility] [place] [address] [place] [employer] [employer] [facility] [place] [address] [employer] PPO [facility] [place] [id number] [employer] PPO [facility] [place] [address] [employer] PPO Member Subscriber Plan / Payer ( fective 2014-Present) Name:Franny Doherty Relation to Subscriber:Not on file Name:FRANNY DOHERTY R (Home) Address: [address] [place], [place] [address]CK [facility] [place] [address] Payer ID:[id number] (NAIC) Type:PPO Address: [place] [address] [facility] [place] [address] [employer] PASSPORT PPO [facility] [place] [address] [facility] MVP V[employer]ORT PPO [facility] [place] [address] [facility] [employer]ORT PPO [facility] [place] [address] [facility] [employer] PPO [facility] [place] [address] [facility] [employer] [facility] [place] [address] [facility] [employer]SPORT PPO [facility] [place] [address] [facility] PASSPORT PPO Care Teams Insurance Follow Up Specialist Relationship Specialty Start Date End Date Berny Roberts MD PCP - General Internal Medicine 10/30/21 Additional Source Comments The information contained in this document represents components of the legal health record. It is not the complete legal health record.[facility]
== END 2025-01-16 16:30 | disposition home or self-care (01) ==
LOC: HO.HUSH 15:28
PROVIDERS: PCP Physician Assistant Medical; Visit Provider Nurse Practitioner Family
DX: R39.9 Unspecified symptoms and signs involving the genitourinary system (principal); N40.0 Benign prostatic hyperplasia without lower urinary tract symptoms; R35.1 Nocturia; E11.69 Type 2 diabetes mellitus with other specified complication; N52.1 Erectile dysfunction due to diseases classified elsewhere; Z13.9 Encounter for screening, unspecified
CPT/HCPCS: 99203

== ENCOUNTER → 2025-01-16 15:27 | Outpatient (BNVA) | payer OTHER, SELFPAY | PROVIDERS: PCP Physician Assistant Medical; Visit Provider Nurse Practitioner Family | DX: N40.0 Benign prostatic hyperplasia without lower urinary tract symptoms (principal) | CPT/HCPCS: 81003 ==

== ENCOUNTER 2025-01-21 10:03 | Outpatient (REF) | payer OTHER, SELFPAY ==
--- OUTSIDE RECORDS SUMMARY | 2025-01-21 10:06 | XMS_ITS | Clinical Summary ---
Author Organization [facility] Facility Address [address] [place] [address] Care Team Providers Care Medical Research Associate Name Role Phone Stephon Valero PA-C Primary [...] patient's age to complete [place] [address] Care Teams Medical Research Associate Relationship Specialty Start Date End Date Stephon Valero PA-C PCP - General Physician Food Service Sales Representatives 01/20/22
--- OUTSIDE RECORDS SUMMARY | 2025-01-21 10:06 | XMS_ITS | Encounter Summary ---
Author Organization [facility] Address [address] [place] [address] Phone Care Team Providers Care Police Booking Officer Name Role Phone Berny Roberts MD Primary Care Provider Diane rico Encounter Details Date Type Department Care Team (Late st Contact Info) Description 10/31/2021 Procedure Pass OR Admitting Dept - Virtual Department [address] [place] [address] Social History Tobacco Use Types Packs/Day Years [...] on filedocumented in this encounter Care Teams Police Booking Officer Relationship Specialty Start Date End Date Berny Roberts MD PCP - General Internal Medicine 10/30/21 documented as of this encounter Additional Source Comments The information contained in this document represents components of the legal health record. It is not the complete legal health record.[facility]
--- OUTSIDE RECORDS SUMMARY | 2025-01-21 10:06 | XMS_ITS | Clinical Summary ---
Author Organization [facility] Address [address] [place] [address] Phone Care Team Providers Care Cook Chili Name Role Phone Berny Roberts MD Primary [...] this topic Medical Devices Implanted Type Area Lactation Coordinator Device Identifier Shelf Expiration Date Model / Serial / Lot Stent Ureteral 6fr 22 To 30cm Stretch Coated Christine - [id number] Implanted:Qty: 1 on 10/31/2021 by Carlos Martinez MD at [facility] Right: Ureter Leo [facility] 05/14/2024 [id number] / [id number] Description:Strings secured to penis with tape Insurance [place] [employer] P[employer] [place] [employer] P[employer] Holiday Propane[employer] PPO [facility] DxNAPORT PPO [facility] DxNAPORT PPO [facility] [place] [address] [facility] Selerity PASSPORT PPO [facility] [place] [address] [place] [employer] [place] [employer] [facility] [place] [address] [employer]ice[employer] PASSPORT PPO [facility] [place] [id number] Holiday PropanePORT PPO [facility] [place] [address] Holiday PropanePORT PPO [facility] [place] [address] [employer] [place] PASSPORT P[place] [facility] [place] [address] [facility] PanravenIM PASSPORT P[place] [facility] [place] [address] [facility] PanravenIM PASSPORT PPO [facility] [place] [address] [facility] DxNAPORT PPO [facility] [place] [address] [facility] Selerity PASSPORT PPO [facility] [place] [address] [facility] Selerity PASSPORT PPO [facility] [place] [address] [facility] PASSPORT PPO Care Teams Cook Chili Relationship Specialty Start Date End Date Berny Roberts MD PCP - General Internal Medicine 10/30/21 Additional Source Comments The information contained in this document represents components of the legal health record. It is not the complete legal health record.[facility]
--- OUTSIDE RECORDS SUMMARY | 2025-01-21 10:06 | XMS_ITS | Clinical Summary ---
Author Organization [facility] [address] [facility] Address [address] [place] [address] Phone Care Team Providers Care Academic Support Coordinator Name Role Phone Stephon Valero Primary Care Provider [phone] [phone] Allergies No known active allergies Medications blood [...] 3:45 PM EDT Consult General Surgery - [place] [address] [place] [address] Terry Stack MD Localized soft tissue swelling present on examination (Primary Dx); Breast prominence 10/24/2024 2:44 PM EDT - 10/24/2024 11:59 PM EDT Hospital Encounter Radiology Department - [address] [phone] Need for vaccination against Streptococcus pneumoniae; Stage 3 chronic kidney disease, unspecified whether stage 3a or 3b CKD ([facility] V24, [facility] V28); Diabetes mellitus with cataract ([facility] V24, [facility] V28); Diabetes mellitus, new onset ([facility] V24, [facility] V28); BPH with obstruction/lower urinary tract symptoms; Primary hypertension Discharge Disposition: Home or Self Care 10/24/2024 2:44 PM EDT - 10/24/2024 11:59 PM EDT Hospital Encounter Radiology Department - [address] [phone] Axillary mass, bilateral Discharge Disposition: Home or Self Care 10/24/2024 Telephone Adult Medicine East - [address] [phone] Stephon Valero PA from Last 3 Months [...] Description 03/01/2025 3:30 PM EDT Office Visit [facility] Medicine [address] [address] Stephon Valero PA [address] [place] [phone] Health Maintenance Due Date Last Done [...] in size over the year. Mammo Location: [facility], [address] [place] [address], [address], . -------- FINAL REPORT -------- Dictated By: Rosalia Lancaster Dictated Date: 10/24/2024 15:04 ET Assigned Physician: Rosalia Lancaster Reviewed and Electronically Signed By: Rosalia Lancaster Signed Date: 10/24/2024 15:28 ET Workstation ID: [id number] Transcribed By: Self Edit Transcribed Date: 10/24/2024 [...] increase in size over theyear. Mammo Location: [facility], [address] [place] [address], [phone], . -------- FINAL REPORT -------- Dictated By: Rosalia Lancaster Dictated Date: 10/24/2024 15:04 ET Assigned Physician: Rosalia Lancaster Reviewed and Electronically Signed By: Rosalia Lancaster Signed Date: 10/24/2024 15:28 ET Workstation ID: [id number] Transcribed By: Self Edit Transcribed Date: 10/24/2024 [...] in size over the year. Mammo Location: [facility], [address] [place] [address], [address], . -------- FINAL REPORT -------- Dictated By: Rosalia Lancaster Dictated Date: 10/24/2024 15:04 ET Assigned Physician: Rosalia Lancaster Reviewed and Electronically Signed By: Rosalia Lancaster Signed Date: 10/24/2024 15:28 ET Workstation ID: [id number] Transcribed By: Self Edit Transcribed Date: 10/24/2024 [...] increase in size over theyear. Mammo Location: [facility], [address] [place] [address], [address], . -------- FINAL REPORT -------- Dictated By: Rosalia Lancaster Dictated Date: 10/24/2024 15:04 ET Assigned Physician: Rosalia Lancaster Reviewed and Electronically Signed By: Rosalia Lancaster Signed Date: 10/24/2024 15:28 ET Workstation ID: [id number] Transcribed By: Self Edit Transcribed Date: 10/24/2024 [...] in size over the year. Mammo Location: [facility], [address] [place] [address], [address], . -------- FINAL REPORT -------- Dictated By: Rosalia Lancaster Dictated Date: 10/24/2024 15:04 ET Assigned Physician: Rosalia Lancaster Reviewed and Electronically Signed By: Rosalia Lancaster Signed Date: 10/24/2024 15:28 ET Workstation ID: [id number] Transcribed By: Self Edit Transcribed Date: 10/24/2024 [...] increase in size over theyear. Mammo Location: [facility], [address] [place] [address], [phone], . -------- FINAL REPORT -------- Dictated By: Rosalia Lancaster Dictated Date: 10/24/2024 15:04 ET Assigned Physician: Rosalia Lancaster Reviewed and Electronically Signed By: Rosalia Lancaster Signed Date: 10/24/2024 15:28 ET Workstation ID: [id number] Transcribed By: Self Edit Transcribed Date: 10/24/2024 15:25 ET Stephon ROSE IMG BI PROCEDURES Final R esult * (ABNORMAL) Lipid panel with reflex to direct LDL (10/11/2024 4:25 PM EDT) Cholesterol 186 0 - 200 mg/dL LAB CHEMISTRY METHOD 10/11/2024 8:18 PM EDT [facility] Triglycerides 214(H) 0 - 150 mg/dL LAB CHEMISTRY METHOD 10/11/2024 8:18 PM EDT [facility] HDL 35(L) >=40 mg/dL LAB CHEMISTRY METHOD 10/11/2024 8:18 PM EDT [facility] LDL Calculated 108(H) 0 - 100 mg/dL LAB CHEMISTRY METHOD 10/11/2024 8:18 PM EDT [facility] VLDL Cholesterol Jarrod 42.8 mg/dL LAB CHEMISTRY METHOD 10/11/2024 8:18 PM EDT [facility] Non HDL Chol. (LDL+VLDL) 151(H) <145 mg/dL LAB CHEMISTRY METHOD 10/11/2024 8:18 PM EDT [facility] Chol/HDL Ratio 5.3(H) 0.0 - 4.4 LAB CHEMISTRY METHOD 10/11/2024 8:18 PM EDT [facility] Blood Venous blood specimen / Unknown Venipuncture / Unknown 10/11/2024 4:25 PM EDT 10/11/2024 4:25 PM EDT Stephon ROSE LAB BLOOD ORDERABLES Amy l Result Performing Organization Address City/[facility]/ZIP Co de Phone Number [facility] [address] [place] [address], [place] [phone] * Microalbumin creatinine urine ratio (10/11/2024 4:25 PM EDT) Creatinine, Urine 170.0 mg/dL LAB CHEMISTRY METHOD 10/11/2024 8:44 PM EDT [facility] Microalb, Ur 18.8 0.0 - 29.0 mg/L LAB CHEMISTRY METHOD 10/11/2024 8:44 PM EDT [facility] Microalb/Creat Ratio 11 <30 mg/g creat LAB CHEMISTRY METHOD 10/11/2024 8:44 PM EDT [facility] Urine Urine specimen obtained by clean catch procedure / Unknown Non-blood Collection / Unknown 10/11/2024 4:25 PM EDT 10/11/2024 4:25 PM EDT Stephon ROSE LAB URINE ORDERABLES Amy l Result Performing Organization Address City/[facility]/ZIP Co de Phone Number [facility] [address] [place] [address], * (ABNORMAL) Hemoglobin A1c (10/11/2024 4:25 PM EDT) [facility] Hemoglobin A1C 7.1(H) <6.5 % LAB CHEMISTRY METHOD 10/12/2024 10:21 AM EDT [facility] Mean Bld Glu Estim. 157 mg/dL LAB CHEMISTRY METHOD 10/12/2024 10:21 AM EDT [facility] Blood Venous blood specimen / Unknown Venipuncture / Unknown 10/11/2024 4:25 PM EDT 10/11/2024 4:25 PM EDT Stephon ROSE LAB BLOOD ORDERABLES Amy l Result [facility] [address] [place] [address], * (ABNORMAL) Comprehensive metabolic panel (10/11/2024 4:25 PM EDT) [facility] Sodium 136 133 - 145 mmol/L LAB CHEMISTRY METHOD 10/11/2024 8:18 PM EDT [facility] Potassium 4.3 3.5 - 5.5 mmol/L LAB CHEMISTRY METHOD 10/11/2024 8:18 PM EDT [facility] Chloride 103 96 - 110 mmol/L LAB CHEMISTRY METHOD 10/11/2024 8:18 PM EDT [facility] CO2 28 21 - 32 mmol/L LAB CHEMISTRY METHOD 10/11/2024 8:18 PM EDT [facility] Anion Gap 5 3 - 11 LAB CHEMISTRY METHOD 10/11/2024 8:18 PM EDT [facility] Glucose 118(H) 70 - 100 mg/dL LAB CHEMISTRY METHOD 10/11/2024 8:18 PM EDT [facility] BUN 17 5 - 25 mg/dL LAB CHEMISTRY METHOD 10/11/2024 8:[address] [facility] Creatinine 1.37(H) 0.70 - 1.30 mg/dL LAB CHEMISTRY METHOD 10/11/2024 8:[address] [facility] eGFR 58(L) >=60 mL/min/1. 73m2 LAB CHEMISTRY METHOD 10/11/2024 8:[address] [facility] Comment:Calculation based on the Chronic Kidney Disease Epidemiology Collaboration (CKD-EPI) equation refit without adjustment for race. BUN/Creatinine Ratio 12.4 LAB CHEMISTRY METHOD 10/11/2024 8:[address] [facility] Calcium 10.1 8.5 - 10.5 mg/dL LAB CHEMISTRY METHOD 10/11/2024 8:[address] [facility] AST (SGOT) 22 10 - 42 unit/L LAB CHEMISTRY METHOD 10/11/2024 8:[address] [facility] ALT (SGPT) 47 10 - 60 unit/L LAB CHEMISTRY METHOD 10/11/2024 8:[address] [facility] Alkaline Phosphatase 116 42 - 121 unit/L LAB CHEMISTRY METHOD 10/11/2024 8:[address] [facility] Total Protein 8.0 6.0 - 8.0 g/dL LAB CHEMISTRY METHOD 10/11/2024 8:[address] [facility] Albumin 4.3 3.2 - 5.0 g/dL LAB CHEMISTRY METHOD 10/11/2024 8:[address] [facility] Total Bilirubin 0.5 0.0 - 1.4 mg/dL LAB CHEMISTRY METHOD 10/11/2024 8:[address] [facility] Blood Venous blood specimen / Unknown Venipuncture / Unknown 10/11/2024 4:25 PM EDT 10/11/2024 4:25 PM EDT Stephon ROSE LAB BLOOD ORDERABLES Amy l Result [facility] [address] [place] [address], [place] [phone] * Diabetes Eye Exam (12/29/2023) [facility] Diabetes: Annual Retina Eye Exam abstracted Historical Provider MD HEALTH MAINTENANCE Final Result * Colonoscopy (10/12/2023) [facility] Colonoscopy no interpretation , abstracted Anatomical Region Laterality Modality Other Historical Provider MD HEALTH MAINTENANCE Final Result * Diabetes Foot Exam (04/17/2023) [facility] Diabetes: Annual Foot Exam abstracted Historical Provider HEALTH MAINTENANCE Final Result * Hepatitis C Screening (02/18/2023) [facility] Hepatitis C Screening abstracted Historical Provider HEALTH MAINTENANCE Final Result from Last 3 Months or Most Recently Relevant to Health Maintenance Insurance [facility] Advance Directives Documents on File Type Date Recorded Patient Mica Builder Expl anation Health Care Decision (hx) 03/29/2016 [...] (hx) 03/29/2016 AD STAPLES DIRECTIVE Care Teams Academic Support Coordinator Relationship Specialty Start Date End Date Stephon Valero PA [address] [place] [id number] PCP - General Internal Medicine 11/30/20
--- OUTSIDE RECORDS SUMMARY | 2025-01-21 10:06 | XMS_ITS | Clinical Summary ---
Author Organization [employer] Address [address] [place] [address] Care Team Providers Care Warehouse Stock Clerk Name Role Phone Unavailable Primary Care Provider [...]
[2025-01-21 11:33] LABS: Hemoglobin A1C 252.5932 umol/L; Total Hemoglobin (HGBA1C) 3992.8034 umol/L
[2025-01-21 12:15] LABS: Prostate Specific Antigen 9.96 ng/mL (<0.05-4.0)
== END 2025-01-21 10:04 | disposition home or self-care (01) ==
LOC: HO.HMGCLDS 10:03
PROVIDERS: PCP Physician Assistant Medical; Visit Provider Nurse Practitioner Family
DX: N40.0 Benign prostatic hyperplasia without lower urinary tract symptoms (principal); R35.1 Nocturia; E11.69 Type 2 diabetes mellitus with other specified complication; N52.1 Erectile dysfunction due to diseases classified elsewhere; R39.9 Unspecified symptoms and signs involving the genitourinary system; Z12.5 Encounter for screening for malignant neoplasm of prostate
CPT/HCPCS: 36415; 83036; 84153

== ENCOUNTER 2025-01-28 09:02 | Outpatient (REF) | payer OTHER, SELFPAY ==
--- OUTSIDE RECORDS SUMMARY | 2025-01-28 09:05 | XMS_ITS | Clinical Summary ---
Author Organization [facility] Address [address] [place] [address] Care Team Providers Care Line Prep Cook Name Role Phone Unavailable Primary Care Provider [...]
--- OUTSIDE RECORDS SUMMARY | 2025-01-28 09:05 | XMS_ITS | Clinical Summary ---
Author Organization [facility] [address] [place] [address] Address [address] [facility] [place] [address] Phone Care Team Providers Care Pressing Machine Tender Name Role Phone Stephon Valero Primary Care Provider +1 -[phone] Allergies No known active allergies Medications blood [...] 3:45 PM EDT Consult General Surgery - [address] [place] [address] Terry Stack MD Localized soft tissue swelling present on examination (Primary Dx); Breast prominence from Last 3 Months Immunizations Name Administration [...] Description 03/01/2025 3:30 PM EDT Office Visit Adult Medicine [address] [phone] Stephon Valero PA [address] [place] [phone] Health Maintenance Due Date Last Done [...] Procedure Name Priority Date/Time Associated Diagnosis Comments EXTERNAL CLINICAL LAB 01/21/2025 MICROALBUMIN CREATININE URINE RATIO Routine 10/11/2024 4:25 PM EDT Need for vaccination against Streptococcus pneumoniae Stage 3 chronic kidney disease, unspecified whether stage 3a or 3b CKD (CMS/HCC V24, CMS/HCC V28) Diabetes mellitus with cataract (CMS/HCC V24, CMS/HCC V28) Diabetes mellitus, new onset ([facility]HCC V24, CMS/HCC V28) BPH with obstruction/lower urinary [...] with obstruction/lower urinary tract symptoms Primary hypertension DIABETES EYE EXAM Routine 12/29/2023 COLONOSCOPY Routine 10/12/2023 DIABETES FOOT EXAM Routine 04/17/2023 HEPATITIS C SCREENING Routine 02/18/2023 from Last 3 Months or Most Recently Relevant to Health Maintenance Results * External clinical lab (01/21/2025) us Provider [facility] LAB BLOOD ORDERABLES Fin al Result * (ABNORMAL) Lipid panel with reflex to direct LDL (10/11/2024 4:25 PM EDT) Cholesterol 186 0 - 200 mg/dL LAB CHEMISTRY METHOD [facility]/11[facility]2024 [facility] Triglycerides 214(H) 0 - 150 mg/dL LAB CHEMISTRY METHOD 10/11/2024 8:18 [facility] HDL 35(L) >=40 mg/dL LAB CHEMISTRY METHOD 10/11/2024 8:18 [facility] LDL Calculated 108(H) 0 - 100 mg/dL LAB CHEMISTRY METHOD 10/11/2024 8:18 PM EDT [facility] VLDL Cholesterol Jarrod 42.8 mg/dL LAB CHEMISTRY METHOD 10/11/2024 8:18 [facility] Non HDL Chol. (LDL+VLDL) 151(H) <145 mg/dL LAB CHEMISTRY METHOD 10/11/2024 8:18 [facility] Chol/HDL Ratio 5.3(H) 0.0 - 4.4 LAB CHEMISTRY METHOD 10/11/2024 8:[address] [facility] Blood Venous blood specimen / Unknown Venipuncture / Unknown 10/11/2024 4:25 PM EDT 10/11/2024 4:25 PM EDT Stephon ROSE LAB BLOOD ORDERABLES Amy l Result Performing Organization Address [facility]/ZIP Co de Phone Number [facility] [address] [place] [address], [place] [phone] * Microalbumin creatinine urine ratio (10/11/2024 4:25 PM EDT) Creatinine, Urine 170.0 mg/dL LAB CHEMISTRY METHOD 10/11/2024 8:44 PM EDT [facility] Microalb, Ur 18.8 0.0 - 29.0 mg/L LAB CHEMISTRY METHOD 10/11/2024 8:44 PM EDT [facility] Microalb/Creat Ratio 11 <30 mg/g creat LAB CHEMISTRY METHOD 10/11/2024 8:44 PM EDT [facility] Urine Urine specimen obtained by clean catch procedure / Unknown Non-blood Collection / Unknown 10/11/2024 4:25 PM EDT 10/11/2024 4:25 PM EDT Stephon ROSE LAB URINE ORDERABLES Amy l Result Performing Organization Address City/[facility]/ZIP Co de Phone Number [facility] [address] [place] [address], [place] [phone] * (ABNORMAL) Hemoglobin A1c (10/11/2024 4:25 PM EDT) Hemoglobin A1C 7.1(H) <6.5 % LAB CHEMISTRY METHOD 10/12/2024 10:21 AM EDT [facility] Mean Bld Glu Estim. 157 mg/dL LAB CHEMISTRY METHOD 10/12/2024 10:21 AM EDT [facility] Blood Venous blood specimen / Unknown Venipuncture / Unknown 10/11/2024 4:25 PM EDT 10/11/2024 4:25 PM EDT Stephon ROSE LAB BLOOD ORDERABLES Amy l Result [facility] [address] [place] [address], * (ABNORMAL) Comprehensive metabolic panel (10/11/2024 4:25 PM EDT) Sodium 136 133 - 145 mmol/L LAB CHEMISTRY METHOD 10/11/2024 8:[address] [facility] Potassium 4.3 3.5 - 5.5 mmol/L LAB CHEMISTRY METHOD 10/11/2024 8:[address] [facility] Chloride 103 96 - 110 mmol/L LAB CHEMISTRY METHOD 10/11/2024 8:[address] [facility] CO2 28 21 - 32 mmol/L LAB CHEMISTRY METHOD 10/11/2024 8:[address] [facility] Anion Gap 5 3 - 11 LAB CHEMISTRY METHOD 10/11/2024 8:[address] [facility] Glucose 118(H) 70 - 100 mg/dL LAB CHEMISTRY METHOD 10/11/2024 8:[address] [facility] BUN 17 5 - 25 mg/dL LAB CHEMISTRY METHOD 10/11/2024 8:[address] [facility] Creatinine 1.37(H) 0.70 - 1.30 mg/dL LAB CHEMISTRY METHOD 10/11/2024 8:[address] [facility] eGFR 58(L) >=60 mL/min/1. 73m2 LAB CHEMISTRY METHOD 10/11/2024 8:[address] [facility] Comment:Calculation based on the Chronic Kidney Disease Epidemiology Collaboration (CKD-EPI) equation refit without adjustment for race. BUN/Creatinine Ratio 12.4 LAB CHEMISTRY METHOD 10/11/2024 8:18 PM T [facility] Calcium 10.1 8.5 - 10.5 mg/dL LAB CHEMISTRY METHOD 10/11/2024 8:[address] [facility] AST (SGOT) 22 10 - 42 unit/L LAB CHEMISTRY METHOD 10/11/2024 8:[address] [facility] ALT (SGPT) 47 10 - 60 unit/L LAB CHEMISTRY METHOD 10/11/2024 8:[address] [facility] Alkaline Phosphatase 116 42 - 121 unit/L LAB CHEMISTRY METHOD 10/11/2024 8:[address] [facility] Total Protein 8.0 6.0 - 8.0 g/dL LAB CHEMISTRY METHOD 10/11/2024 8:[address] [facility] Albumin 4.3 3.2 - 5.0 g/dL LAB CHEMISTRY METHOD 10/11/2024 8:[address] [facility] Total Bilirubin 0.5 0.0 - 1.4 mg/dL LAB CHEMISTRY METHOD 10/11/2024 8:[address] [facility] Blood Venous blood specimen / Unknown Venipuncture / Unknown 10/11/2024 4:25 PM EDT 10/11/2024 4:25 PM EDT Stephon ROSE LAB BLOOD ORDERABLES Amy l Result [facility] [address] [place] [address], * Diabetes Eye Exam (12/29/2023) [facility] Diabetes: Annual Retina Eye Exam abstracted Historical Provider HEALTH MAINTENANCE Final Result * Colonoscopy (10/12/2023) [facility] Colonoscopy no interpretation , abstracted Anatomical Region Laterality Modality Other Historical Provider HEALTH MAINTENANCE Final Result * Diabetes Foot Exam (04/17/2023) [facility] Diabetes: Annual Foot Exam abstracted Historical Provider HEALTH MAINTENANCE Final Result * Hepatitis C Screening (02/18/2023) [facility] Hepatitis C Screening abstracted [facility] Provider HEALTH MAINTENANCE Final Result from Last 3 Months or Most Recently Relevant to Health Maintenance Insurance [facility] Advance Directives Documents on File Type Date Recorded Patient Semiconductor Package Symbol Stamper Expl anation Health Care Decision (hx) 03/29/2016 [...] (hx) 03/29/2016 AD STAPLES DIRECTIVE Care Teams Pressing Machine Tender Relationship Specialty Start Date End Date Stephon Valero PA [address] [place] [address] PCP - General Internal Medicine 11/30/20
--- OUTSIDE RECORDS SUMMARY | 2025-01-28 09:05 | XMS_ITS | Encounter Summary ---
Author Organization [facility] Address [address] [place] [address] Phone Care Team Providers Care Roustabout Crew Pusher Name Role Phone Berny Roberts MD Primary Care Provider Diane rico Encounter Details Date Type Department Care Team (Late st Contact Info) Description 10/31/2021 Procedure Pass OR Admitting Dept - Virtual Department [address] [place] [address] Social History Tobacco Use Types Packs/Day Years [...] on filedocumented in this encounter Care Teams Roustabout Crew Pusher Relationship Specialty Start Date End Date Berny Roberts MD PCP - General Internal Medicine 10/30/21 documented as of this encounter Additional Source Comments The information contained in this document represents components of the legal health record. It is not the complete legal health record.[facility]
--- OUTSIDE RECORDS SUMMARY | 2025-01-28 09:05 | XMS_ITS | Clinical Summary ---
Author Organization [facility] Facility Address [address] [place] [address] Care Team Providers Care Lap Cutter Truer Operator Name Role Phone Stephon Valero PA-C Primary [...] to complete this topic Insurance Care Teams Lap Cutter Truer Operator Relationship Specialty Start Date End Date Stephon Valero PA-C PCP - General Physician Vegetable I Farmworker 01/20/22
--- OUTSIDE RECORDS SUMMARY | 2025-01-28 09:05 | XMS_ITS | Clinical Summary ---
Author Organization [facility] Address [address] [place] [address] Phone Care Team Providers Care Solar Installer Technician Name Role Phone Berny Roberts MD Primary [...] this topic Medical Devices Implanted Type Area Director Process Device Identifier Shelf Expiration Date Model / Serial / Lot Stent Ureteral 6fr 22 To 30cm Stretch Coated Christine - [id number] Implanted:Qty: 1 on 10/31/2021 by Carlos Martinez MD at [facility] Right: Ureter [employer] [facility] 05/14/2024 [id number] / [id number] Description:Strings secured to penis with tape Insurance [employer]ENNER Mesuro[place] PPO J[place]NER [employer]uro[place] PPO Your Style UnzippedPORT PPO [facility] Easy PairingsPORT PPO [facility] Easy Pairings[place] PPO [facility] [address] [facility] [employer]art PASSP[place] PPO [facility] [place] [address] J[place]NER Mesuro[place] PPO [employer] PPO [facility] [address] [employer] PASSPORT PPO [facility] [place] [id number] Your Style Unzipped[place] PPO [facility] [place] [address] Your Style Unzipped[place] PPO [facility] [place] [address] [employer]ILGRIM PASSPORT PPO [facility] [place] [id number] [facility] Three Screen GamesIM PASSPORT PPO [facility] [place] [id number] [facility] Three Screen GamesIM PASSPORT PPO [facility] [address] [facility] Easy Pairings[place] PPO [facility] [place] [address] [facility] [employer]art [place] PPO [facility] [address] [facility] Mediasmart [place] PPO [facility] [address] [facility] PASSPORT PPO Care Teams Solar Installer Technician Relationship Specialty Start Date End Date Berny Roberts MD PCP - General Internal Medicine 10/30/21 Additional Source Comments The information contained in this document represents components of the legal health record. It is not the complete legal health record.[facility]
[2025-01-28 11:54] LABS: PSA,Total (Free>4and<10) 6.10 ng/mL (0.00-4.00)
[2025-01-31 11:54] LABS: Free Prostate Spec Ag 1.2 ng/mL; Percent Free Prostate Spec Ag 24 % (calc) (>25)
== END 2025-01-28 09:03 | disposition home or self-care (01) ==
LOC: HO.HMGCLDS 09:02
PROVIDERS: PCP Physician Assistant Medical; Visit Provider Nurse Practitioner Family
DX: R97.20 Elevated prostate specific antigen [PSA] (principal); Z12.5 Encounter for screening for malignant neoplasm of prostate
CPT/HCPCS: 36415; 84153; 84154

== ENCOUNTER 2025-03-24 14:51 | Outpatient (REF) | payer OTHER, SELFPAY ==
--- NOTE | ~2025-03-24 | US_ITS ---
EXAMINATION: US RETROPERITONEAL COMPLETE (RENAL) CLINICAL INFORMATION: R39.9. COMPARISON: July 24, 2023 TECHNIQUE: Real-time imaging of the kidneys and bladder. FINDINGS: RIGHT KIDNEY: 11 x 5 x 5 cm (SAG x AP x TRV). Normal echotexture Renal cortical thickness is normal. Mild dilatation of the pelvicalyceal system. Exophytic anechoic lesions without septations or nodular components, the largest 7.3 cm. LEFT KIDNEY: 11 x 6 x 6 cm (SAG x AP x TRV). Normal echotexture. Renal cortical thickness is normal. No hydronephrosis. 1.5 cm anechoic lesion at the corticomedullary junction without septations or nodular components. BLADDER: Fluid-filled with a 1.1 cm hyperechoic abnormalities with posterior shadowing in the dependent portion of the bladder. Bilateral ureteral jets are demonstrated. Prevoid bladder volume is 185 mL. Postvoid bladder volume is 59 mL. Prostate gland measures 5 x 5 x 5 cm, volume: 63 cc. US/US retroperitoneal comp IMPRESSION: Mild right pelvicalyceal ectasia versus mild hydronephrosis. Bilateral renal cysts. Calculi in the urinary bladder lumen. 59 cc of residual urine in a post void image. Prostate gland measures 63 cc. . Electronically signed by: Moises Bedoya MD 03/24/2025 04:10 PM EST
--- OUTSIDE RECORDS SUMMARY | 2025-03-24 22:23 | XMS_ITS | Clinical Summary ---
Author Organization [facility] Address [address] [place] [address] Care Team Providers Care Metalizer Name Role Phone Stephon Valero PA-C Primary [...] Years Used Date Smoking Tobacco: Former Cigarettes 0.3 Q uit: 05/11/1995 Smokeless Tobacco: Never Tobacco [...] patient's age to complete this topic Insurance , [facility] Care Teams Metalizer Relationship Specialty Start Date End Date Stephon Valero PA-C PCP - General Physician Bladder Trimmer 01/20/22
--- OUTSIDE RECORDS SUMMARY | 2025-03-24 22:23 | XMS_ITS | Clinical Summary ---
Author Organization [facility] [address] [place] [address] [address] [facility] [place] [address] Phone Care Team Providers Care Dinkey Engine Mechanic Name Role Phone Stephon Valero Primary Care Provider [phone] Allergies No known active allergies Medications blood [...] Kidney stone 03/23/2009 Overview (02/08/2024): Had lithtripsy Immunizations Immunization Administration Dates Next Due Influenza Quadravalent, MDCK [...] 0.3 Q uit: 05/11/1995 Smokeless Tobacco: Never Alcohol [...] Care Team (Late st Contact Info) Description 04/17/2025 3:00 PM EST Office Visit Adult Medicine [facility] [address] [place] [id number] Ai Cooney PA [address] [place], [place] Health Maintenance Due Date Last Done Comments Hepatitis A Vaccines (1 of 2 - Risk 2-dose series) 1980 RSV Immunization Adult Patients (1 - Risk 50-74 years 1-dose series) 07/10/2011 Hepatitis B Vaccines (1 of 3 - Risk 3-dose series) 2021 Zoster Vaccines (2 of 2) [...] Date/Time Associated Diagnosis Comments EXTERNAL CLINICAL LAB 01/28/2025 EXTERNAL CLINICAL LAB 01/28/2025 EXTERNAL CLINICAL LAB 01/21/2025 MICROALBUMIN CREATININE URINE [...] Health Maintenance Results * External clinical lab (01/28/2025) Only the most recent of3 resultswithin the time period is included. us Provider [facility] LAB BLOOD ORDERABLES Fin al Result * (ABNORMAL) Lipid panel with reflex to direct LDL (10/11/2024 4:25 PM EDT) Cholesterol 186 0 - 200 mg/dL LAB CHEMISTRY [facility] Triglycerides 214(H) 0 - 150 mg/dL LAB CHEMISTRY METHOD 10/11/2024 8:18 PM [facility] HDL 35(L) >=40 mg/dL LAB CHEMISTRY METHOD 10/11/2024 8:18 PM [facility] LDL Calculated 108(H) 0 - 100 mg/dL LAB CHEMISTRY METHOD 10/11/2024 8:18 PM [facility] VLDL Cholesterol Jarrod 42.8 mg/dL LAB CHEMISTRY METHOD 10/11/2024 8:18 PM [facility] Non HDL Chol. (LDL+VLDL) 151(H) <145 mg/dL LAB CHEMISTRY METHOD [facility] Chol/HDL Ratio 5.3(H) 0.0 - 4.4 LAB CHEMISTRY METHOD 10/11/2024 8:18 PM [facility] Blood Venous blood specimen / Unknown Venipuncture / Unknown 10/11/2024 4:25 PM EDT 10/11/2024 4:25 PM EDT Stephon ROSE LAB BLOOD ORDERABLES Amy l Result [facility] [address] [place] [address], [place] [phone] * Microalbumin creatinine urine ratio (10/11/2024 4:25 PM EDT) Creatinine, Urine 170.0 mg/dL LAB CHEMISTRY METHOD 10/11/2024 8:44 PM EDT [facility] Microalb, Ur 18.8 0.0 - 29.0 mg/L LAB CHEMISTRY METHOD 10/11/2024 8:44 PM EDT [facility] Microalb/Creat Ratio 11 <30 mg/g creat LAB CHEMISTRY METHOD 10/11/2024 8:44 PM EDT [facility] Urine Urine specimen obtained by clean catch procedure / Unknown Non-blood Collection / Unknown 10/11/2024 4:25 PM EDT 10/11/2024 4:25 PM EDT Stephon ROSE LAB URINE ORDERABLES Amy l Result Performing Organization Address City/[facility]/ZIP Co de Phone Number [facility] [address] [place] [address], [place] [phone] * (ABNORMAL) Hemoglobin A1c (10/11/2024 4:25 PM EDT) Hemoglobin A1C 7.1(H) <6.5 % LAB CHEMISTRY METHOD 10/12/2024 10:21 AM EDT [facility] Mean Bld Glu Estim. 157 mg/dL LAB CHEMISTRY METHOD 10/12/2024 10:21 AM EDT [facility] Blood Venous blood specimen / Unknown Venipuncture / Unknown 10/11/2024 4:25 PM EDT 10/11/2024 4:25 PM EDT us Stephon ROSE LAB BLOOD ORDERABLES Amy dawson Result [facility] [address] [place] [address], [place] [phone] * (ABNORMAL) Comprehensive metabolic panel (10/11/2024 4:25 PM EDT) Sodium 136 133 - 145 mmol/L LAB CHEMISTRY METHOD 10/11/2024 8:18 PM EDT [facility] Potassium 4.3 3.5 - 5.5 mmol/L LAB CHEMISTRY METHOD 10/11/2024 8:18 PM [facility] Chloride 103 96 - 110 mmol/L LAB CHEMISTRY METHOD 10/11/2024 8:18 PM [facility] CO2 28 21 - 32 mmol/L LAB CHEMISTRY METHOD 10/11/2024 8:18 PM EDT [facility] Anion Gap 5 3 - 11 LAB CHEMISTRY METHOD 10/11/2024 8:18 PM [facility] Glucose 118(H) 70 - 100 mg/dL LAB CHEMISTRY METHOD 10/11/2024 8:18 PM [facility] BUN 17 5 - 25 mg/dL LAB CHEMISTRY METHOD 10/11/2024 8:18 PM T [facility] Creatinine 1.37(H) 0.70 - 1.30 mg/dL LAB CHEMISTRY METHOD 10/11/2024 8:18 PM T [facility] eGFR 58(L) >=60 mL/min/1. 73m2 LAB CHEMISTRY METHOD 10/11/2024 8:18 PM T [facility] Comment:Calculation based on the Chronic Kidney Disease Epidemiology Collaboration (CKD-EPI) equation refit without adjustment for race. BUN/Creatinine Ratio 12.4 LAB CHEMISTRY METHOD 10/11/2024 8:18 PM [facility] Calcium 10.1 8.5 - 10.5 mg/dL LAB CHEMISTRY METHOD 10/11/2024 8:18 PM EDT [facility] AST (SGOT) 22 10 - 42 unit/L LAB CHEMISTRY METHOD 10/11/2024 8:18 PM EDT [facility] ALT (SGPT) 47 10 - 60 unit/L LAB CHEMISTRY METHOD 10/11/2024 8:18 PM EDT [facility] Alkaline Phosphatase 116 42 - 121 unit/L LAB CHEMISTRY METHOD 10/11/2024 8:18 PM EDT [facility] Total Protein 8.0 6.0 - 8.0 g/dL LAB CHEMISTRY METHOD 10/11/2024 8:18 PM EDT [facility] Albumin 4.3 3.2 - 5.0 g/dL LAB CHEMISTRY METHOD 10/11/2024 8:18 PM T [facility] Total Bilirubin 0.5 0.0 - 1.4 mg/dL LAB CHEMISTRY METHOD 10/11/2024 8:18 PM T [facility] Blood Venous blood specimen / Unknown Venipuncture / Unknown 10/11/2024 4:25 PM EDT 10/11/2024 4:25 PM EDT Stephon ROSE LAB BLOOD ORDERABLES Amy l Result [facility] [address] [place] [address], * Diabetes Eye Exam (12/29/2023) Diabetes: Annual Retina Eye Exam abstracted Historical Provider HEALTH MAINTENANCE Final Result * Colonoscopy (10/12/2023) Colonoscopy no interpretation , abstracted Anatomical Region Laterality Modality Other Historical Provider HEALTH MAINTENANCE Final Result * Diabetes Foot Exam (04/17/2023) Diabetes: Annual Foot Exam abstracted Historical Provider HEALTH MAINTENANCE Final Result * Hepatitis C Screening (02/18/2023) Hepatitis C Screening abstracted us Historical Provider HEALTH MAINTENANCE Final Result from Last 3 Months or Most Recently Relevant to Health Maintenance Insurance [facility] Advance Directives Documents on File Type Date Recorded Patient [facility] Manager Expl anation Health Care Decision (hx) 03/29/2016 [...] (hx) 03/29/2016 AD STAPLES DIRECTIVE Care Teams Dinkey Engine Mechanic Relationship Specialty Start Date End Date Stephon Valero PA [address] [place] [id number] PCP - General Internal Medicine 11/30/20
--- OUTSIDE RECORDS SUMMARY | 2025-03-24 22:23 | XMS_ITS | Encounter Summary ---
Author Organization [facility] Address [address] [place] [address] Phone Care Team Providers Care Aluminum Molding Machine Operator Name Role Phone Berny Roberts MD Primary Care Provider Diane rico Encounter Details Date Type Department Care Team (Late st Contact Info) Description 10/31/2021 Procedure Pass OR Admitting Dept - Virtual Department [address] [place] [address] Social History Tobacco Use Types Packs/Day Years [...] on filedocumented in this encounter Care Teams Aluminum Molding Machine Operator Relationship Specialty Start Date End Date Berny Roberts MD PCP - General Internal Medicine 10/30/21 documented as of this encounter Additional Source Comments The information contained in this document represents components of the legal health record. It is not the complete legal health record.[facility]
--- OUTSIDE RECORDS SUMMARY | 2025-03-24 22:24 | XMS_ITS | Clinical Summary ---
Author Organization [facility] Address [address] [place] [address] Phone Care Team Providers Care Barrel Dedenting Machine Operator Name Role Phone Berny Roberts [...] HIV ONE-TIME SCREENING (18-6 5 YEARS) 07/10/1979 PNEUMOCOCCAL VACCINES (50+ y ears) (1 of 2 - PCV) 1980 COLOGUARD 2006 COLONOSCOPY 2006 COLORECTAL CANCER SCREENING 2006 FIT TEST 2006 FOBT 2006 SIGMOIDOSCOPY 2006 VIRTUAL COLONOSCOPY 2006 ZOSTER VACCINES (2 of 2) 08/03/2021 06/08/2021 [...] patient's age to complete this topic IPV VACCINES Aged Out No longer eligi ble based on patient's age to complete this topic MENINGOCOCCAL VACCINES (ACWY) Aged Out No longer eligible based on patient's age to complete this topic MENINGOCOCCAL VACCINES (B) Aged Out N o longer eligible based on patient's age to complete this topic Medical Devices Implanted Type Area Supervisor Frame Assembly Device Identifier Shelf Expiration Date Model / Serial / Lot Stent Ureteral 6fr 22 To 30cm Stretch Coated Christine - [id number] Implanted:Qty: 1 on 10/31/2021 by Carlos Martinez MD at [facility] Right: Ureter [employer] 05/14/2024 [id number] / / [id number] Description:Strings secured to penis with tape Insurance [place] [id number] [place] [id number] [place] PPO [facility] [place] [id number] [place] [employer] [place] [id number] [facility] [employer] [place]PO [facility] [place] [id number] [facility] [place] [id number] [facility] [employer] [place] PPO [facility] [place] [id number] [facility] [employer] PPO [facility] [place] [id number] [facility] [place] [address] [facility] [employer] [place] PPO [facility] [place] [address] [facility] [place] [address] [facility] [employer] [place] PPO [facility] [place] [address] [place] [employer]PO [facility] [place] [id number] [place] [employer] [place] PPO [facility] [place] [id number] [place] [employer] PPO [facility] [place] [address] [facility] PASSPORT PPO Care Teams Barrel Dedenting Machine Operator Relationship Specialty Start Date End Date Berny Roberts MD PCP - General Internal Medicine 10/30/21 Additional Source Comments The information contained in this document represents components of the legal health record. It is not the complete legal health record.[facility]
--- OUTSIDE RECORDS SUMMARY | 2025-03-24 22:24 | XMS_ITS | Clinical Summary ---
Author Organization [facility] Address [address] [place] [address] Care Team Providers Care Access Coordinator Name Role Phone Unavailable Primary Care Provider [...] 2 - Risk 2-dose series) 1980 RSV Patients and Patients Aged 60 years or older (1 - Risk 50-74 years 1-dose series) [...]
== END 2025-03-24 14:52 | disposition home or self-care (01) ==
LOC: HO.HMGCX 14:51
PROVIDERS: PCP Physician Assistant Medical; Visit Provider Nurse Practitioner Family
DX: R39.9 Unspecified symptoms and signs involving the genitourinary system (principal); R35.1 Nocturia; N40.0 Benign prostatic hyperplasia without lower urinary tract symptoms
CPT/HCPCS: 76770

== ENCOUNTER → 2025-03-24 14:55 | Outpatient (BNV) | payer OTHER, SELFPAY | PROVIDERS: PCP Physician Assistant Medical; Visit Provider Radiology Diagnostic Radiology | DX: N28.1 Cyst of kidney, acquired (principal); N21.0 Calculus in bladder | CPT/HCPCS: 76770 ==

== ENCOUNTER 2025-04-01 08:44 | Outpatient (REF) | payer OTHER, SELFPAY ==
--- OUTSIDE RECORDS SUMMARY | 2025-04-01 08:48 | XMS_ITS | Encounter Summary ---
Author Organization [facility] Address [address] [place] [address] Phone Care Team Providers Care Material Stockkeeper Yard Name Role Phone Berny Roberts MD Primary Care Provider Diane rico Encounter Details Date Type Department Care Team (Late st Contact Info) Description 10/31/2021 Procedure Pass OR Admitting Dept - Virtual Department [address] [place] [address] Social History Tobacco Use Types Packs/Day Years [...] on filedocumented in this encounter Care Teams Material Stockkeeper Yard Relationship Specialty Start Date End Date Berny Roberts MD PCP - General Internal Medicine 10/30/21 documented as of this encounter Additional Source Comments The information contained in this document represents components of the legal health record. It is not the complete legal health record.[facility]
--- OUTSIDE RECORDS SUMMARY | 2025-04-01 08:48 | XMS_ITS | Clinical Summary ---
Author Organization [facility] Address [address] [place] [address] Phone Care Team Providers Care Internal Grinder Set Up Operator Name Role Phone Berny Roberts MD [...] this topic Medical Devices Implanted Type Area Fibrous Plasterer Device Identifier Shelf Expiration Date Model / Serial / Lot Stent Ureteral 6fr 22 To 30cm Stretch Coated Christine - [id number] Implanted:Qty: 1 on 10/31/2021 by Carlos Martinez MD at [facility] Right: Ureter [employer] [facility] 05/14/2024 [id number] / [id number] Description:Strings secured to penis with tape Insurance [place] [employer] PPO [place] [employer] PPO [employer] PPO [facility] Here@ NetworksPORT PPO [facility] Here@ NetworksPORT [place] [facility] [address] [facility] [employer] PASSPORT P[place] [facility] [place] [address] [employer]undia[place] PPO [employer]ia[place] [facility] [address] [employer] [place] PPO [facility] [place] [address] [employer] P[place] [facility] [place] [address] [employer] P[place] [facility] [place] [address] [employer]ILGRIM [place] [address] [facility] Priori Data[employer] [place] [address] [facility] Priori DataIM [place] [facility] [place] [address] [facility] Here@ NetworksPORT [place] [facility] [place] [address] [facility] [employer] [place] [facility] [place] [address] [facility] [employer] [place] [address] [facility] PASSPORT PPO Care Teams Internal Grinder Set Up Operator Relationship Specialty Start Date End Date Berny Roberts MD PCP - General Internal Medicine 10/30/21 Additional Source Comments The information contained in this document represents components of the legal health record. It is not the complete legal health record.[facility]
--- OUTSIDE RECORDS SUMMARY | 2025-04-01 08:48 | XMS_ITS | Clinical Summary ---
Author Organization [facility] Address [address] [place] [address] Care Team Providers Care Stock Room Manager Name Role Phone Unavailable Primary Care Provider [...]
--- OUTSIDE RECORDS SUMMARY | 2025-04-01 08:48 | XMS_ITS | Clinical Summary ---
Author Organization [facility] [address] [place] [address] Address [address] [facility] [place] [address] Phone Care Team Providers Care Proof Machine Operator Name Role Phone Stephon Valero Primary Care Provider +1 [phone] Allergies No known active allergies Medications blood [...] 3:00 PM EST Office Visit Adult Medicine [facility] [address] [place] [phone] Ai Cooney PA [address] [place], [place] Health Maintenance Due Date Last Done [...] Name Priority Date/Time Associated Diagnosis Comments EXTERNAL ULTRASOUND REPORT 03/24/2025 EXTERNAL ULTRASOUND REPORT 03/24/2025 EXTERNAL CLINICAL LAB 01/28/2025 EXTERNAL CLINICAL LAB [...] Relevant to Health Maintenance Results * External Ultrasound Report (03/24/2025) Only the most recent of2 resultswithin the time period is included. Anatomical Region Laterality Modality Ultrasound us Provider [facility] US PROCEDURES Final Result * External clinical lab (01/28/2025) Only the most recent of3 resultswithin the time period is included. us Provider [facility] LAB BLOOD ORDERABLES Fin al Result * (ABNORMAL) Lipid panel with reflex to direct LDL (10/11/2024 4:25 PM EDT) Cholesterol 186 0 - 200 mg/dL LAB CHEMISTR[facility] Triglycerides 214(H) 0 - 150 mg/dL LAB CHEMISTRY METHOD 10/11/2024 [facility] HDL 35(L) >=40 mg/dL LAB CHEMISTRY METHOD 10/11/2024 8:18 PM EDT [facility] LDL Calculated 108(H) 0 - 100 mg/dL LAB CHEMISTRY METHOD 10/11/2024 8:18 PM EDT [facility] VLDL Cholesterol Jarrod 42.8 mg/dL LAB CHEMISTRY METHOD 10/11[facility]2024 [facility] Non HDL Chol. (LDL+VLDL) 151(H) <145 mg/dL LAB CHEMISTRY METHOD 10/11/2024 8:18 PM EDT [facility] Chol/HDL Ratio 5.3(H) 0.0 - 4.4 LAB CHEMISTRY METHOD 10/11/2024 8:18 PM EDT [facility] Blood Venous blood specimen / Unknown Venipuncture / Unknown 10/11/2024 4:25 PM EDT 10/11/2024 4:25 PM EDT Stephon ROSE LAB BLOOD ORDERABLES Amy l Result [facility] [address] [place] [address], [place] [phone] * Microalbumin creatinine urine ratio (10/11/2024 4:25 PM EDT) Creatinine, Urine 170.0 mg/dL LAB CHEMISTRY METHOD 10/11/2024 8:44 PM EDT [facility] Microalb, Ur 18.8 0.0 - 29.0 mg/L LAB CHEMISTRY METHOD 10/11/2024 8:44 PM EDT [facility] Microalb/Creat Ratio 11 <30 mg/g creat LAB CHEMISTRY METHOD 10/11/2024 8:44 PM EDT [facility] Urine Urine specimen obtained by clean catch procedure / Unknown Non-blood Collection / Unknown 10/11/2024 4:25 PM EDT 10/11/2024 4:25 PM EDT Stephon ROSE LAB URINE ORDERABLES Amy l Result [facility] [address] [place] [address], [place] [phone] * (ABNORMAL) Hemoglobin A1c (10/11/2024 4:25 PM EDT) Hemoglobin A1C 7.1(H) <6.5 % LAB CHEMISTRY METHOD 10/12/2024 10:21 AM EDT [facility] Mean Bld Glu Estim. 157 mg/dL LAB CHEMISTRY METHOD 10/12/2024 10:21 AM [facility] Blood Venous blood specimen / Unknown Venipuncture / Unknown 10/11/2024 4:25 PM EDT 10/11/2024 4:25 PM EDT Stephon ROSE LAB BLOOD ORDERABLES Amy l Result [facility] [address] [place] [address], [place] [phone] * (ABNORMAL) Comprehensive metabolic panel (10/11/2024 4:25 PM EDT) Sodium 136 133 - 145 mmol/L LAB CHEMISTRY METHOD 10/11/2024 8:18 PM [facility] Potassium 4.3 3.5 - 5.5 mmol/L LAB CHEMISTRY METHOD 10/11/2024 8:18 PM [facility] Chloride 103 96 - 110 mmol/L LAB CHEMISTRY METHOD 10/11/2024 8:18 PM [facility] CO2 28 21 - 32 mmol/L LAB CHEMISTRY METHOD 10/11/2024 8:18 PM [facility] Anion Gap 5 3 - 11 LAB CHEMISTRY METHOD 10/11/2024 8:18 PM [facility] Glucose 118(H) 70 - 100 mg/dL LAB CHEMISTRY METHOD 10/11/2024 8:18 PM [facility] BUN 17 5 - 25 mg/dL LAB CHEMISTRY METHOD 10/11/2024 8:18 PM [facility] Creatinine 1.37(H) 0.70 - 1.30 mg/dL LAB CHEMISTRY METHOD 10/11/2024 8:18 PM [facility] eGFR 58(L) >=60 mL/min/1. 73m2 LAB CHEMISTRY METHOD 10/11/2024 8:18 PM EDT [facility] Comment:Calculation based on the Chronic Kidney Disease Epidemiology Collaboration (CKD-EPI) equation refit without adjustment for race. BUN/Creatinine Ratio 12.4 LAB CHEMISTRY METHOD 10/11/2024 8:18 PM [facility] Calcium 10.1 8.5 - 10.5 mg/dL LAB CHEMISTRY METHOD 10/11/2024 8:18 PM [facility] AST (SGOT) 22 10 - 42 unit/L LAB CHEMISTRY METHOD 10/11/2024 8:18 PM [facility] ALT (SGPT) 47 10 - 60 unit/L LAB CHEMISTRY METHOD 10/11/2024 8:18 PM [facility] Alkaline Phosphatase 116 42 - 121 unit/L LAB CHEMISTRY METHOD 10/11/2024 8:18 PM [facility] Total Protein 8.0 6.0 - 8.0 g/dL LAB CHEMISTRY METHOD 10/11/2024 8:18 PM [facility] Albumin 4.3 3.2 - 5.0 g/dL LAB CHEMISTRY METHOD 10/11/2024 8:18 PM [facility] Total Bilirubin 0.5 0.0 - 1.4 mg/dL LAB CHEMISTRY METHOD 10/11/2024 8:18 PM [facility] Blood Venous blood specimen / Unknown Venipuncture / Unknown 10/11/2024 4:25 PM EDT 10/11/2024 4:25 PM EDT us Stephon ROSE LAB BLOOD ORDERABLES Amy dawson Result [facility] [address] [place] [address], * Diabetes Eye Exam (12/29/2023) Diabetes: Annual Retina Eye Exam abstracted Historical Provider HEALTH MAINTENANCE Final Result * Colonoscopy (10/12/2023) Pathologist [facility] Colonoscopy no interpretation , abstracted Anatomical Region Laterality Modality Other Historical Provider HEALTH MAINTENANCE Final Result * Diabetes Foot Exam (04/17/2023) Diabetes: Annual Foot Exam abstracted Historical Provider HEALTH MAINTENANCE Final Result * Hepatitis C Screening (02/18/2023) Pathologist [facility] Hepatitis C Screening abstracted Historical Provider HEALTH MAINTENANCE Final Result from Last 3 Months or Most Recently Relevant to Health Maintenance Insurance [facility] Advance Directives Documents on File Type Date Recorded Patient Molecular Biology Scientist Expl anation Health Care Decision (hx) 03/29/2016 AD STAPLES DIRECTIVE Health Care Decision (hx) 03/29/2016 AD STAPLES DIRECTIVE Health Care Decision (hx) 03/29/2016 AD STAPLES DIRECTIVE Health Care Decision (hx) 03/29/2016 AD STAPLES DIRECTIVE Health Care Decision (hx) 03/29/2016 AD STALPES DIRECTIVE Health Care Decision (hx) 03/29/2016 AD STAPLES DIRECTIVE Health Care Decision (hx) 03/29/2016 AD STAPLES DIRECTIVE Health Care Decision (hx) 03/29/2016 AD STAPLES DIRECTIVE Care Teams Proof Machine Operator Relationship Specialty Start Date End Date Stephon Valero PA [address] [place] [address] PCP - General Internal Medicine 11/30/20
--- OUTSIDE RECORDS SUMMARY | 2025-04-01 08:48 | XMS_ITS | Clinical Summary ---
Author Organization [facility] Facility Address [address] [place] [address] Care Team Providers Care Miller Supervisor Name Role Phone Stephon Valero PA-C Primary [...] to complete this topic Insurance Care Teams Miller Supervisor Relationship Specialty Start Date End Date Stephon Valero PA-C PCP - General Physician Project Program Manager 01/20/22
[2025-04-01 11:47] LABS: PSA,Total (Free>4and<10) 5.26 ng/mL (0.00-4.00)
[2025-04-04 12:39] LABS: Free Prostate Spec Ag 1.2 ng/mL; Percent Free Prostate Spec Ag 24 % (calc) (>25)
== END 2025-04-01 08:45 | disposition home or self-care (01) ==
LOC: HO.HMGCLDS 08:44
PROVIDERS: PCP Physician Assistant Medical; Visit Provider Nurse Practitioner Family
DX: N40.0 Benign prostatic hyperplasia without lower urinary tract symptoms (principal); R39.9 Unspecified symptoms and signs involving the genitourinary system; R97.20 Elevated prostate specific antigen [PSA]; Z12.5 Encounter for screening for malignant neoplasm of prostate
CPT/HCPCS: 36415; 84153; 84154

== ENCOUNTER 2025-04-03 15:15 | Outpatient (AMB) | payer OTHER, SELFPAY ==
--- NOTE | 2025-04-03 15:16 | A.OFFVIS_ITS ---
Intake Visit Reasons: PSA A1C AND US 1-3 M FOLLOW UP Intake Note: Patient is present for 3 mo follow up Urology Medication:ALFUZOSIN,ALLOPURINOL Antibiotic Allergy:NONE Blood Thinner:NONE Labs done : 04/01/25 PSA total :5.26 Imaging: Retroperitoneum US 03/24/25 PVR:16 mls Mortuary Operations Manager Required: No Accompanied by: Spouse Allergies No Known Allergies Allergy (Verified 04/03/25 17:38) Medication List - Last Reconciled 04/03/25 by JAYASHREE Monzon alfuzosin ER 10 mg PO BEDTIME allopurinol 100 mg PO DAILY glipizide 5 mg PO DAILY lisinopril 20 mg PO DAILY sulfamethoxazole-trimethoprim 800-160 mg (Bactrim DS) 1 tab PO BID 14 days HPI Comments Details: Abhinav is a pleasant 64-year-old male patient of Dr. Valero who was accompanied by his significant other at today's office visit. He has a past medical history of hyperlipidemia, hypertension, diabetes, gout, and nephrolithiasis. He presents to the office today for a follow up. Of note, patient was seen approximately 2 months ago as a new patient for nephrolithiasis as well as lower urinary tract symptoms at which time a retroperitoneal ultrasound and PSA were ordered for further assessment evaluation. Prior to follow-up PSA returned to elevated and call to patient to discuss potential causes of elevated PSA. He has since completed a course of Bactrim for potential prostatitis given patient's lower urinary tract symptoms in the setting of elevated PSA. These results were reviewed and communicated with the patient today: PSAs: 02/02 10.0, 02/02 6.1 % free PSA 24%, 04/04 5.3 % free PSA pending A1c: 02/02 7.9% Recent retroperitoneal ultrasound results reviewed with the patient today 04/04. Bilateral kidneys are normal in renal cortical thickness and echotexture. Mild right pelvicalyceal ectasia verses mild hydronephrosis. Bilateral renal cysts. Calculi in the urinary bladder lumen. Prostate measures approximately 63 mL. We did discuss potential causes of bladder calculi as well as labile PSA. He rep orts a longstanding history of following up with Dr. Matamoros at [facility] and has a longstanding history of nephrolithiasis requiring surgical intervention. He also reports having had YANELI with Dr. Matamoros and was noted to have an enlarged prostate. He does continue to experience lower urinary tract symptoms. He discusses he has recently started exercising with his daughters Jeannette and has found this helpful. He reports compliance with alfuzosin as he has been on this medication for quite some time however is unsure if this has been helpful in treatment of his lower urinary tract symptoms. 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 We did discuss in office cystoscopy to further assess bladder calculi. He also reports ED and has previously trialed multiple medications and only found Levitra helpful however most recently has not had sufficient erections that are adequate for penetration despite utilization of Levitra. We did discussed potential causes of ED as well as further treatment options and risks and benefits of these treatment options. In office urinalysis results reviewed with the patient today. PVR 16 mL. All questions were answered. He otherwise offers no other issues or concerns at this time. [facility] Medical History (Updated 04/03/25 @ 15:32 by NAGI Monzon-) Nephrolithiasis Chronic kidney disease (CKD), stage III (moderate) Gout Diabetes HTN (hypertension) Social History (Updated 07/24/23 @ 22:07 by Tierra Worthy DO) Household Members: Significant Other Housing: House Do you presently have visiting nurse or other home services: No Patient Tobacco Use Status: Never used Tobacco service: No Review of Systems Const All systems reviewed & are unremarkable except as noted in HPI and below Physical Exam Const General: cooperative, healthy appearing, comfortable, no acute distress, well developed, alert and awake Orientation/consciousness: patient oriented x3 Limitations: no limitations HEENT Head: Yes normal to inspection, Yes normocephalic and Yes atraumatic Ears: hearing grossly normal bilaterally Eyes General: appearance normal, both eyes and all related structures Neck Neck: Yes normal visual inspection and Yes trachea midline Chest Chest palpation & inspection: normal inspection of the chest Resp Effort & Inspection: normal respiratory effort and able to speak in complete sentences Cardio Rate: regular rate GI Inspection: Yes normal to inspection General: Yes no CVA tenderness Back/Spine/Pelvis Back: no CVA tenderness Skin General skin exam: no rashes or lesions noted Neuro General: patient oriented x3 Extrem General: Yes normal to inspection Psych Appearance: grossly normal and well kempt Mental Status: mental status grossly normal Speech and movement: Normal speech and movement present and Clear speech present Affect: normal affect Attitude: cooperative Thought process: Normal thought process present Thought content: Normal thought content present Insight: Fair insight present (Psych) Judgement: Fair judgement present (Psych) Office Procedures Post Void Residual Post Residual Void Post Void Residual (PVR): 16 [id number] Void Residual by ultrasound Results AMB Urinalysis, Automated UA Leukoctes 0 David/uL Last Edit by Ashley Colon, [facility] on 04/03/25 15:27 UA Nitrite Negative Last Edit by Ashley Colon, [facility] on 04/03/25 15:27 UA Urobilinogen 0.2 mg/dL Last Edit by Ashley Colon, [facility] on 04/03/25 15:27 UA Protein 0 mg/dL Last Edit by Ashley Colon, [facility] on 04/03/25 15:27 UA pH 6.0 Last Edit by Ashley Colon, [facility] on 04/03/25 15:27 UA Blood 10 Rio/uL Last Edit by Ashley Colon, [facility] on 04/03/25 15:27 UA Specific [place] 1.015 Last Edit by Ashley Colon, [facility] on 04/03/25 15:2 7 UA Ketone Negative Last Edit by Ashley Colon, [facility] on 04/03/25 15:27 UA Bilirubin 0 mg/dL Last Edit by Ashley Colon, [facility] on 04/03/25 15:27 UA Glucose 0 mg/dL Last Edit by Ashley Colon, [facility] on 04/03/25 15:27 Results Reviewed Results Reviewed: Laboratory Last Values Urine pH (Auto) 6.0 04/03/25 15:26 Specific [place] (Auto) 1.015 04/03/25 15:26 Urine Protein (Auto) 0 mg/dL 04/03/25 15:26 Glucose (UA)(Auto) 0 mg/dL 04/03/25 15:26 Urine Ketones (Auto) Negative 04/03/25 15:26 Urine Blood (Auto) 10 Rio/uL 04/03/25 15:26 Urine Nitrite (Auto) Negative 04/03/25 15:26 Urine Bilirubin (Auto) 0 mg/dL 04/03/25 15:26 Urine Urobilinogen (Auto) 0.2 mg/dL 04/03/25 15:26 Leukocyte Esterase (Auto) 0 David/uL 04/03/25 15:26 Date of Service: 03/24/25 Procedure(s): US retroperitoneal comp FINDINGS: RIGHT KIDNEY: 11 x 5 x 5 cm (SAG x AP x TRV). Normal echotexture Renal cortical thickness is normal. Mild dilatation of the pelvicalyceal system. Exophytic anechoic lesions without septations or nodular components, the largest 7.3 cm. LEFT KIDNEY: 11 x 6 x 6 cm (SAG x AP x TRV). Normal echotexture. Renal cortical thickness is normal. No hydronephrosis. 1.5 cm anechoic lesion at the corticomedullary junction without septations or nodular components. BLADDER: Fluid-filled with a 1.1 cm hyperechoic abnormalities with posterior shadowing in the dependent portion of the bladder. Bilateral ureteral jets are demonstrated. Prevoid bladder volume is 185 mL. Postvoid bladder volume is 59 mL. Prostate gland measures 5 x 5 x 5 cm, volume: 63 cc. IMPRESSION: Mild right pelvicalyceal ectasia versus mild hydronephrosis. Bilateral renal cysts. Calculi in the urinary bladder lumen. 59 cc of residual urine in a post void image. Prostate gland measures 63 cc. Assessment & Plan Assessment & Plan (1) Bladder calculi: Code(s): N21.0 - Calculus in bladder Category: Medical (2) Enlarged prostate: Code(s): N40.0 - Benign prostatic hyperplasia without lower urinary tract symptoms Category: Medical (3) Nocturia: Code(s): R35.1 - Nocturia Category: Medical (4) Lower urinary tract symptoms: Code(s): R39.9 - Unspecified symptoms and signs involving the genitourinary system Category: Medical (5) Nephrolithiasis: Code(s): N20.0 - Calculus of kidney Category: Medical (6) Elevated PSA: Code(s): R97.20 - Elevated prostate specific antigen [PSA] Category: Medical (7) Erectile dysfunction associated with type 2 diabetes mellitus: Code(s): E11.69 - Type 2 diabetes mellitus with other specified complication; N52.1 - Erectile dysfunction due to diseases classified elsewhere Category: Medical Plan In office urinalysis results reviewed with the patient today; as noted above. PVR 16 mL. Most recent PSA results reviewed with the patient today; as noted above. Most recent retroperitoneal ultrasound results reviewed with the patient today; as noted above. We did discussed potential causes of bladder calculi as well as labile PSA; we did discussed further treatment options of these urological conditions and risks and benefits of these treatment options. All questions were answered. We did discussed potential causes of ED as well as further treatment options and risks and benefits of these treatment options. All questions were answered. Continue alfuzosin as discussed and prescribed. We did discuss further treatment options of enlarged prostate and risks and benefits of these treatment options. We discussed lifestyle modifications to assist with ED as well as overall health and well-being. Follow-up next available in office cystoscopy; or sooner with any issues, concerns, and or questions. Orders: Orders Urine Cytology Today N20.0 - Calculus of kidney Medications: Discontinued sulfamethoxazole-trimethoprim 800-160 mg (Bactrim DS) Discontinued Reason: Patient Completed Course 1 tab PO BID 14 days 28 tabs 0RF Patient Instructions: The patient had an opportunity to ask questions regarding the treatment plan. All questions were answered. Physical exam, labs, and imaging were discussed and reviewed in detail. As well as risks, benefits, and discussion of treatment choices. No major barriers to understanding were identified. The patient expressed understanding and agreement with the above treatment plan. The patient was made aware they should contact our office by phone for worsening of their current condition, the appearance of new symptoms, or with any questions or concerns. Compliance is encouraged with any medications and follow up testing that is ordered. It is a privilege to be allowed the opportunity to participate in? your urological care.? Again, if you have any questions or concerns If you have any questions or concerns please do not hesitate to contact me. The office is [phone]. This note is constructed using voice recognition software. While every effort has been made to ensure accuracy bridge engineer errors may have been included. Yours sincerely, NAYELY Monzon Coding Level of Care Code Est Pt Level 4 (19360) Diagnoses Bladder calculi N21.0 Enlarged prostate N40.0 Nocturia R35.1 Lower urinary tract symptoms R39.9 Nephrolithiasis N20.0 Elevated PSA R97.20 Erectile dysfunction associated with type 2 diabetes mellitus E11.69; N52.1 CPT Codes Post Residual Void - PVR CPT Code: [id number]-[id number] Void Residual by ultrasound ([id number])
--- OUTSIDE RECORDS SUMMARY | 2025-04-03 19:58 | XMS_ITS | Clinical Summary ---
Author Organization [facility] [address] [place] [address] Address [address] [facility] [place] [address] Phone Care Team Providers Care Rack Puller Name Role Phone Stephon Valero Primary Care Provider [phone] [phone] Allergies No known active allergies Medications blood [...] 3:00 PM EST Office Visit Adult Medicine [facility] [address] [place] [phone] Ai Cooney PA [address] [place], [place] Health Maintenance Due Date Last Done [...] mg/dL LAB CHEMISTRY METHOD 10/11[facility]2024 8:[facility] Triglycerides 214(H) 0 - 150 mg/dL LAB CHEMISTRY METHOD 10/11/2024 8:18 [facility] HDL 35(L) >=40 mg/dL LAB CHEMISTRY METHOD 10/11/2024 8:18 PM EDT [facility] LDL Calculated 108(H) 0 - 100 mg/dL LAB CHEMISTRY METHOD 10/11/2024 8:18 PM EDT [facility] VLDL Cholesterol Jarrod 42.8 mg/dL LAB CHEMISTRY METHOD 10/11/2024 8:18 [facility] Non HDL Chol. (LDL+VLDL) 151(H) <145 mg/dL LAB CHEMISTRY METHOD 10/11/2024 8:18 PM EDT [facility] Chol/HDL Ratio 5.3(H) 0.0 - 4.4 LAB CHEMISTRY METHOD 10/11/2024 8:18 PM EDT [facility] Blood Venous blood specimen / Unknown Venipuncture / Unknown 10/11/2024 4:25 PM EDT 10/11/2024 4:25 PM EDT Stephon ROSE LAB BLOOD ORDERABLES Amy l Result [facility] [address] [place] [address], [place] [phone] * Microalbumin creatinine urine ratio (10/11/2024 4:25 PM EDT) Creatinine, Urine 170.0 mg/dL LAB CHEMISTRY METHOD 10/11/2024 8:44 PM EDT [facility] Microalb, Ur 18.8 0.0 - 29.0 mg/L LAB CHEMISTRY METHOD 10/11/2024 8:44 PM EDT [facility] Microalb/Creat Ratio 11 <30 mg/g creat LAB CHEMISTRY METHOD 10/11/2024 8:44 PM EDT [facility] Urine Urine specimen obtained by clean catch procedure / Unknown Non-blood Collection / Unknown 10/11/2024 4:25 PM EDT 10/11/2024 4:25 PM EDT Stephon ROSE LAB URINE ORDERABLES Amy l Result [facility] [address] [place] [address], [place] [phone] * (ABNORMAL) Hemoglobin A1c (10/11/2024 4:25 PM EDT) Hemoglobin A1C 7.1(H) <6.5 % LAB CHEMISTRY METHOD 10/12/2024 10:21 AM EDT [facility] Mean Bld Glu Estim. 157 mg/dL LAB CHEMISTRY METHOD 10/12/2024 10:[address] [facility] Blood Venous blood specimen / Unknown Venipuncture / Unknown 10/11/2024 4:25 PM EDT 10/11/2024 4:25 PM EDT Stephon ROSE LAB BLOOD ORDERABLES Amy l Result [facility] [address] [place] [address], [place] [phone] * (ABNORMAL) Comprehensive metabolic panel (10/11/2024 4:25 PM EDT) Sodium 136 133 - 145 mmol/L LAB CHEMISTRY METHOD 10/11/2024 8:[address] [facility] Potassium 4.3 3.5 - 5.5 mmol/L LAB CHEMISTRY METHOD 10/11/2024 8:[address] [facility] Chloride 103 96 - 110 mmol/L LAB CHEMISTRY METHOD 10/11/2024 8:[address] [facility] CO2 28 21 - 32 mmol/L LAB CHEMISTRY METHOD 10/11/2024 8:[address] [facility] Anion Gap 5 3 - 11 LAB CHEMISTRY METHOD 10/11/2024 8:[address] [facility] Glucose 118(H) 70 - 100 mg/dL LAB CHEMISTRY METHOD 10/11/2024 8:[address] [facility] BUN 17 5 - 25 mg/dL LAB CHEMISTRY METHOD 10/11/2024 8:[address] [facility] Creatinine 1.37(H) 0.70 - 1.30 mg/dL LAB CHEMISTRY METHOD 10/11/2024 8:[address] [facility] eGFR 58(L) >=60 mL/min/1. 73m2 LAB CHEMISTRY METHOD 10/11/2024 8:18 PM EDT [facility] Comment:Calculation based on the Chronic [...] ROSE LAB BLOOD ORDERABLES Amy dawson Result [facility] [address] [place] [address], * Diabetes Eye Exam (12/29/2023) Diabetes: Annual Retina Eye Exam abstracted Historical Provider HEALTH MAINTENANCE Final Result * Colonoscopy (10/12/2023) Pathologist [facility] Colonoscopy no interpretation , abstracted Anatomical Region Laterality Modality Other Historical Provider HEALTH MAINTENANCE Final Result * Diabetes Foot Exam (04/17/2023) Diabetes: Annual Foot Exam abstracted Historical Provider HEALTH MAINTENANCE Final Result * Hepatitis C Screening (02/18/2023) Pathologist [facility] Hepatitis C Screening abstracted Historical Provider HEALTH MAINTENANCE Final Result from Last 3 Months or Most Recently Relevant to Health Maintenance Insurance [facility] Advance Directives Documents on File Type Date Recorded 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
--- OUTSIDE RECORDS SUMMARY | 2025-04-03 19:58 | XMS_ITS | Clinical Summary ---
Author Organization [facility] Facility Address [address] [place] [address] Care Team Providers Care Lead Software Architect Name Role Phone Stephon Valero PA-C Primary [...] to complete this topic Insurance Care Teams Lead Software Architect Relationship Specialty Start Date End Date Stephon Valero PA-C PCP - General Physician [place] 01/20/22
--- OUTSIDE RECORDS SUMMARY | 2025-04-03 19:58 | XMS_ITS | Clinical Summary ---
Author Organization [facility] Address [address] [place] [address] Care Team Providers Care Hand Expansion Envelope Maker Name Role Phone Unavailable Primary Care Provider [...]
--- OUTSIDE RECORDS SUMMARY | 2025-04-03 19:58 | XMS_ITS | Clinical Summary ---
Author Organization [facility] Address [address] [place] [address] Phone Care Team Providers Care Tube Builder Name Role Phone Berny Roberts MD Primary [...] this topic Medical Devices Implanted Type Area Protective Clothing Issuer Device Identifier Shelf Expiration Date Model / Serial / Lot Stent Ureteral 6fr 22 To 30cm Stretch Coated Christine - [id number] Implanted:Qty: 1 on 10/31/2021 by Carlos Martinez MD at [facility] Right: Ureter [employer] [facility] 05/14/2024 [id number] / [id number] Description:Strings secured to penis with tape Insurance [place] [employer] [place] [employer] [place] [employer] PPO [facility] [employer] P[employer] [facility] [employer] PPO [facility] [place] [address] [facility] [employer] [facility] [place] [address] [place] [employer] [place] [employer] [place] [address] [employer] [facility] [place] [id number] [employer] [facility] [place] [address] [employer] [facility] [place] [address] [employer] [place] [address] [facility] [employer] [place] [facility] [place] [address] [facility] [employer] [facility] [place] [address] [facility] [employer] [facility] [place] [address] [facility] [employer] [place] [address] [facility] [employer] [place] [facility] [place] [address] [facility] PAS[employer] PPO Care Teams Tube Builder Relationship Specialty Start Date End Date Berny Roberts MD PCP - General Internal Medicine 10/30/21 Additional Source Comments The information contained in this document represents components of the legal health record. It is not the complete legal health record.[facility]
--- OUTSIDE RECORDS SUMMARY | 2025-04-03 19:58 | XMS_ITS | Encounter Summary ---
Author Organization [facility] Address [address] [place] [address] Phone Care Team Providers Care Buggy Loader Name Role Phone Berny Roberts MD Primary Care Provider Diane rico Encounter Details Date Type Department Care Team (Late st Contact Info) Description 10/31/2021 Procedure Pass OR Admitting Dept - Virtual Department [address] [place] [address] Social History Tobacco Use Types Packs/Day Years [...] on filedocumented in this encounter Care Teams Buggy Loader Relationship Specialty Start Date End Date Berny Roberts MD PCP - General Internal Medicine 10/30/21 documented as of this encounter Additional Source Comments The information contained in this document represents components of the legal health record. It is not the complete legal health record.[facility]
== END 2025-04-03 16:08 | disposition home or self-care (01) ==
LOC: HO.HUSH 15:16
PROVIDERS: PCP Physician Assistant Medical; Visit Provider Nurse Practitioner Family
DX: N21.0 Calculus in bladder (principal); N40.0 Benign prostatic hyperplasia without lower urinary tract symptoms; R35.1 Nocturia; R39.9 Unspecified symptoms and signs involving the genitourinary system; N20.0 Calculus of kidney; R97.20 Elevated prostate specific antigen [PSA]; E11.69 Type 2 diabetes mellitus with other specified complication; N52.1 Erectile dysfunction due to diseases classified elsewhere
CPT/HCPCS: 99214

== ENCOUNTER 2025-04-03 15:15 | Outpatient (REF) | payer OTHER, SELFPAY | END 2025-04-03 15:16 | disposition home or self-care (01) | LOC: HO.LAB 15:15 | PROVIDERS: PCP Physician Assistant Medical; Visit Provider Nurse Practitioner Family | DX: N20.0 Calculus of kidney (principal); N21.0 Calculus in bladder; N40.1 Benign prostatic hyperplasia with lower urinary tract symptoms; R35.1 Nocturia; R97.20 Elevated prostate specific antigen [PSA]; E11.69 Type 2 diabetes mellitus with other specified complication; N52.1 Erectile dysfunction due to diseases classified elsewhere | CPT/HCPCS: 51798; 88112 ==